=== PATIENT | male | born 1995 | race Caucasian/White ===

== ENCOUNTER 2017-12-06 14:51 | Outpatient (CLI) | payer BC ==
[~2017-12-06] VITALS: Ht 165.1 cm; Wt 72.6 kg
[2017-12-06] MEDS ORDERED: RISP1TAB3 PO (15:45)
== END 2017-12-06 15:51 | disposition home or self-care (01) ==
LOC: EDBD → PREOP 14:51
PROVIDERS: ATTEND Specialist
DX: Z01.818 Encounter for other preprocedural examination (principal)

== ENCOUNTER 2017-12-11 08:28 | Day surgery (SDC) | payer BC ==
[~2017-12-11] VITALS: Ht 165.1 cm; Wt 72.6 kg
[~2017-12-11 08:28] MED LIST: RISP1TAB3 PO
[2017-12-11] MEDS ORDERED: LACTATED RINGERS 1,000 ML IV PRN ×3 (08:52→09:00)
[2017-12-11 08:55] VITALS: BP 100/57
[2017-12-11] MEDS ORDERED: ceFAZolin 2 GM IV Premixed 50 ML IV ONE (09:00)
[2017-12-11] MEDS ORDERED: CATHETER FLUSH 10 ML SYR IV PRN (09:15)
[2017-12-11] MEDS ORDERED: NS IV 500 ML 500 ML IV PRN (09:17)
[2017-12-11] MEDS ORDERED: IBUPROFEN SUSP 100MG/5ML (MOTRIN) UDC ONE (09:18)
[2017-12-11] MEDS ORDERED: LIDOCAINE/EPI 2% 1:100,00 (XYLOCAINE) 20 ML VIAL ONE (09:25)
[2017-12-11] MEDS ORDERED: ROPIVACAINE 5MG/ML 30ML VIAL ONE (09:26)
[2017-12-11] MEDS ORDERED: MIDAZOLAM 2 MG/2 ML (VERSED) VIAL ONE (09:29)
[2017-12-11] MEDS ORDERED: fentaNYL INJECTION 100 MCG/2 ML AMP ONE (09:29)
[2017-12-11] MEDS ORDERED: ONDANSETRON 4 MG/2 ML (SDV) Z0FRAN ONE (09:29)
[2017-12-11] MEDS ORDERED: proPOfol 200 MG/20 ML (DIPRIVAN) VIAL IV ONE (09:29)
[2017-12-11] MEDS ORDERED: DEXAMETHASONE 10 MG/ML (DECADRON) 1 ML VIAL ONE (09:29)
[2017-12-11] MEDS ORDERED: LIDOCAINE PF 2% 2 ML (XYLOCAINE) VIAL ONE (09:29)
[2017-12-11] MEDS ORDERED: ROCURONIUM 10 MG/ML 5 ML SYRINGE IV ONE (09:29)
[2017-12-11] MEDS ORDERED: SEVOFLURANE (ULTANE) 15 ML INHAL SOLN ONE (09:29)
[2017-12-11] MEDS ORDERED: APAP 325 MG/10.15 ML LIQ (TYLENOL) UDC PO ONE (09:30)
[2017-12-11] MEDS ORDERED: MIDAZOLAM SYRUP (VERSED) 10MG/5ML UDC PO ONE (09:30)
--- NOTE | 2017-12-11 09:35 | Progress Note-Pre Operative ---
Pre-Operative Progress Note H&P Reviewed The H&P was reviewed, patient examined and no changes noted. Date Seen by Provider: Dec 11, 2017 Time Seen by Provider: :30 Date H&P Reviewed: Dec 11, 2017 Time H&P Reviewed: :30 Pre-Operative Diagnosis: downs syndrome, nonfuntionaland, carious wisdom teeth. SHELBY DUNCAN DDS Dec 11, 2017 9:35 am
[2017-12-11] MEDS ORDERED: LIDOCAINE JELLY 2% (XYLOCAINE) 5 ML TUBE ONE (09:36)
[2017-12-11] MEDS ORDERED: PHENYLEPHRINE 0.25% NASAL SPR (NEO-SYNEPHRINE) 15 ML NS ONE ×2 (09:57→10:30)
[2017-12-11] MEDS ORDERED: PHENYLEPHRINE 100 MCG/ML 10 ML (ANESTHESIA) SYR ONE (10:17)
--- OUTSIDE RECORDS SUMMARY | 2017-12-11 10:24 | XMS REPORT | Clinical Summary ---
Author Author Admin, EDDIE Organization [facility] Address Unknown Phone Unavailable Allergies, Adverse Reactions, Alerts Allergy Name Reaction Description Start Date Severity Status Provider No Known Allergies Mechellemaria de jesus Mcclellan VALENTINO Conditions or Problems Problem Name Problem Code Onset Date Status Entry Date Provider Comment Standard Description Annotate DOWN SYNDROME 758.0 Active Iesha Cardoza MD Down's syndrome OTITIS MEDIA-ACUTE 382.9 Inactive Iesha Cardoza MD Unspecified otitis media FAMILY HISTORY OF HYPERTENSION V17.4 Active Iesha Cardoza MD Family history of other cardiovascular diseases FAMILY HISTORY OF HYPERLIPIDEMIA V17.4 Active Iesha Cardoza MD Family history of other cardiovascular diseases WELL CHILD EXAMINATION V20.2 Active Katarzyna Wilson Routine or child health check Sinusitis-Acute 461.9 Inactive Iesha Cardoza MD Acute sinusitis, unspecified Eczema 692.9 Active Iesha Cardoza MD Contact dermatitis and other eczema, unspecified cause Dandruff 690.18 Resolved Iesha Cardoza MD Other seborrheic dermatitis Sinusitis-Acute 461.9 Inactive Iesha Cardoza MD Acute sinusitis, unspecified Fatigue 780.79 Resolved Iesha Cardoza MD Other malaise and fatigue Fatigue 780.79 Resolved Iesha Cardoza MD Other malaise and fatigue Constipation 564.00 Resolved Iesha Cardoza MD Constipation, unspecified Behavior problems 312.9 Active Iesha Cardoza MD Unspecified disturbance of conduct OTITIS MEDIA-ACUTE ICD-382.9 Inactive Iesha Cardoza MD Sinusitis-Acute ICD-461.9 Inactive Iesha Carodza MD Dandruff ICD-690.18 Inactive Iesha Cardoza MD Sinusitis-Acute ICD-461.9 Inactive Iesha Cardoza MD Fatigue ICD-780.79 Inactive Iesha Cardoza MD Fatigue ICD-780.79 Inactive Iesha Cardoza MD Constipation ICD-564.00 Inactive Iesha Cardoza MD Medication List Medication Instructions Start Date Stop Date Generic Name NDC Status Provider Patient Instruction LORAZEPAM 0.5 MG TABS 1/2 - 1 pill by mouth twice nightly if needed for sleep LORAZEPAM 92386910902 No Longer Active Iesha Cardoza MD Active ZOLOFT 25 MG ORAL TABS 1 daily SERTRALINE HCL 37835057277 Active Iesha Cardoza MD Active FLUTICASONE PROPIONATE 50 MCG/ACT SUSP 1 puff in each nostril daily FLUTICASONE PROPIONATE 50442579972 No Longer Active Hannah Bowman MD PhD Active TRANSDERM-SCOP 1.5 MG PT72 use every 3rd day SCOPOLAMINE BASE 49008141545 No Longer Active Hannah Bowman MD PhD Active AUGMENTIN 875-125 MG TABS 1 bid AMOXICILLIN-POT CLAVULANATE 97702366365 No Longer Active Iesha Cardoza MD Active AMOXICILLIN 875 MG TABS 1 bid AMOXICILLIN 67308234737 No Longer Active Iesha Cardzoa MD Active OFLOXACIN 0.3 % OPHTH SOLN 4-5 of the eye drops in the ear bid OFLOXACIN 76610032558 No Longer Active Iesha Cardoza MD Active AMOXICILLIN 875 MG TABS 1 bid AMOXICILLIN 875 MG TABS 725001 AMOXICILLIN Inactive TRANSDERM-SCOP 1.5 MG PT72 use every 3rd day TRANSDERM-SCOP 1.5 MG PT72 SCOPOLAMINE BASE Inactive FLUTICASONE PROPIONATE 50 MCG/ACT SUSP 1 puff in each nostril daily FLUTICASONE PROPIONATE 50 MCG/ACT SUSP 1265202 FLUTICASONE PROPIONATE Inactive LORAZEPAM 0.5 MG TABS 1/2 - 1 pill by mouth twice nightly if needed for sleep LORAZEPAM 0.5 MG TABS 167097 LORAZEPAM Inactive OFLOXACIN 0.3 % OPHTH SOLN 4-5 of the eye drops in the ear bid OFLOXACIN 0.3 % OPHTH SOLN 852786 OFLOXACIN Inactive AUGMENTIN 875-125 MG TABS 1 bid AUGMENTIN 875-125 MG TABS 811314 AMOXICILLIN-POT CLAVULANATE Inactive Advance Directives Directive Description Start Date LETTER OF AUTHORITY Immunizations Vaccine Administration Date Value Standard Description Hepatitis A vaccine, ped/adol, 2 dose (Havrix 2 dose ped/adol, Vaqta ped/adol) , #2 Havrix (2 dose - Ped/Adol) [CVX83] hepatitis A vaccine, pediatric/adolescent dosage, 2 dose schedule Adacel (Tetanus, reduced Diphtheria, and acellular Pertussis Immunization) Adacel [[id number]] tetanus toxoid, reduced diphtheria toxoid, and acellular pertussis vaccine, adsorbed chicken pox immunization #1 Historical varicella virus vaccine MPSV4 (meningococcal polysaccharide vaccination) Historical meningococcal polysaccharide vaccine (MPSV4) hepatitis A immunization #1 Historical hepatitis A vaccine, unspecified formulation DPT immunization #5 Historical oral polio vaccine (OPV) #4 Historical poliovirus vaccine, unspecified formulation Hemophilus influenza B immunization #4 Historical Haemophilus influenzae type b vaccine, conjugate unspecified formulation DPT immunization #4 Historical MMR (measles, mumps, rubella) virus immunization #1 Historical hepatitis B vaccine #3 Historical hepatitis B vaccine, unspecified formulation DPT immunization #3 Historical Hemophilus influenza B immunization #3 Historical Haemophilus influenzae type b vaccine, conjugate unspecified formulation oral polio vaccine (OPV) #3 Historical poliovirus vaccine, unspecified formulation DPT immunization #2 Historical Hemophilus influenza B immunization #2 Historical Haemophilus influenzae type b vaccine, conjugate unspecified formulation oral polio vaccine (OPV) #2 Historical poliovirus vaccine, unspecified formulation hepatitis B vaccine #2 given Historical hepatitis B vaccine, unspecified formulation DPT immunization #1 Historical Hemophilus influenza B immunization #1 Historical Haemophilus influenzae type b vaccine, conjugate unspecified formulation oral polio vaccine (OPV) #1 Historical poliovirus vaccine, unspecified formulation hepatitis B vaccine #1 given Historical hepatitis B vaccine, unspecified formulation Vital Signs Date Name Value Unit Range Description blood pressure, diastolic - 8462-4 60 mm[Hg] BP nation blood pressure, systolic - 8480-6 118 mm[Hg] BP sys height E&M - 8302-2 63 [in_us] Bdy height temperature E&M 97.8 [degF] Body temperature weight E&M - 3141-9 149 [lb_av] Weight Measured Encounters Code Encounter Date Provider Facility CPT-47332 Level 3 Est. Patient 13:45:53 CDT Iesha Cardoza MD [facility] CPT-20253 Level 3 Est. Patient 14:46:41 BUCK SWAMPER Hannah Bowman MD PhD [facility] CPT-37116 Level 3 Est. Patient 10:50:17 BUCK SWAMPER Iesha Cardoza MD [facility] CPT-57784 Level 3 Est. Patient 15:46:29 BUCK SWAMPER Iesha Cardoza MD [facility] CPT-33032 Level 3 Est. Patient 16:05:57 CDT Iesha Cardoza MD [facility] Procedures Code Procedure Name Date Entry Date Standard Description CPT-000 Give Immunizations Due 15:58:05 CDT CPT-42277 Administration 2+ single or combination vaccines inc oral 16:09:35 CDT CPT-78468 Administration single or combination vaccine inc oral 16 :09:35 CDT CPT-35134 Hepatitis A ped/adol 2 dose schedule 16:09:35 CDT 09/04 CPT-34412 Meningococcal Conjugate Vacine (Menactra) 16:09:35 CDT CPT-PV Prev. Care Visit 15:58:05 CDT CPT-31198 Venipuncture Draw Fee 12:00:59 CDT CPT-PV Prev. Care Visit 12:00:08 CDT
--- OUTSIDE RECORDS SUMMARY | 2017-12-11 10:24 | XMS REPORT | Clinical Summary ---
Author Author Admin, EDDIE Organization [facility] Address Unknown Phone Unavailable Allergies, Adverse [...] MD Sinusitis-Acute ICD-461.9 Inactive Iesha Cardoza MD Dandruff ICD-690.18 Inactive Iesha Cardoza MD Sinusitis-Acute ICD-461.9 Inactive Iesha Cardoza MD Fatigue ICD-780.79 Inactive Iesha Cardoza MD Fatigue ICD-780.79 Inactive Iesha Cardoza MD Constipation ICD-564.00 Inactive Iesha Cardoza MD Medication List Medication Instructions Start Date Stop Date Generic Name NDC Status Provider Patient Instruction LORAZEPAM 0.5 MG TABS 1/2 - 1 pill by mouth twice nightly if needed for sleep LORAZEPAM 44828074517 No Longer Active Iesha Cardoza MD Active ZOLOFT 25 MG ORAL TABS 1 daily SERTRALINE HCL 09860324567 Active Iesha Cardoza MD Active FLUTICASONE PROPIONATE 50 MCG/ACT SUSP 1 puff in each nostril daily FLUTICASONE PROPIONATE 60275624867 No Longer Active Hannah Bowman MD PhD Active TRANSDERM-SCOP 1.5 MG PT72 use every 3rd day SCOPOLAMINE BASE 12500952052 No Longer Active Hannah Bowman MD PhD Active AUGMENTIN 875-125 MG TABS 1 bid AMOXICILLIN-POT CLAVULANATE 29604489448 No Longer Active Iesha Cardoza MD Active AMOXICILLIN 875 MG TABS 1 bid AMOXICILLIN 77496373108 No Longer Active Iesha Cardoza MD Active OFLOXACIN 0.3 % OPHTH SOLN 4-5 of the eye drops in the ear bid OFLOXACIN 30212326121 No Longer Active Iesha Cardoza MD Active AMOXICILLIN 875 MG TABS 1 bid AMOXICILLIN 875 MG TABS 695394 AMOXICILLIN Inactive TRANSDERM-SCOP 1.5 MG PT72 use every 3rd day TRANSDERM-SCOP 1.5 MG PT72 SCOPOLAMINE BASE Inactive FLUTICASONE PROPIONATE 50 MCG/ACT SUSP 1 puff in each nostril daily FLUTICASONE PROPIONATE 50 MCG/ACT SUSP 4902526 FLUTICASONE PROPIONATE Inactive LORAZEPAM 0.5 MG TABS 1/2 - 1 pill by mouth twice nightly if needed for sleep LORAZEPAM 0.5 MG TABS 766623 LORAZEPAM Inactive OFLOXACIN 0.3 % OPHTH SOLN 4-5 of the eye drops in the ear bid OFLOXACIN 0.3 % OPHTH SOLN 935834 OFLOXACIN Inactive AUGMENTIN 875-125 MG TABS 1 bid AUGMENTIN 875-125 MG TABS 694749 AMOXICILLIN-POT CLAVULANATE Inactive Advance Directives Directive Description Start Date LETTER OF AUTHORITY Immunizations Vaccine Administration Date Value Standard Description Hepatitis A vaccine, ped/adol, 2 dose (Havrix 2 dose ped/adol, Vaqta ped/adol) , #2 Havrix (2 dose - Ped/Adol) [CVX83] hepatitis A vaccine, pediatric/adolescent dosage, 2 dose schedule Adacel (Tetanus, reduced Diphtheria, and acellular Pertussis Immunization) Adacel [[id number]] tetanus toxoid, reduced diphtheria toxoid, and acellular [...] Measured Encounters Code Encounter Date Provider Facility CPT-02348 Level 3 Est. Patient 13:45:53 CDT Iesha Cardoza MD [facility] CPT-02552 Level 3 Est. Patient 14:46:41 PATIENT SERVICE ASSOCIATE Hannah Bowman MD PhD [facility] CPT-43547 Level 3 Est. Patient 10:50:17 PATIENT SERVICE ASSOCIATE Iesha Cardoza MD [facility] CPT-79074 Level 3 Est. Patient 15:46:29 PATIENT SERVICE ASSOCIATE Iesha Cardoza MD [facility] CPT-66628 Level 3 Est. Patient 16:05:57 CDT Iesha Cardoza MD [facility] Procedures Code Procedure Name Date Entry Date Standard Description CPT-000 Give Immunizations Due 15:58:05 CDT CPT-22401 Administration 2+ single or combination vaccines inc oral 16:09:35 CDT CPT-41634 Administration single or combination vaccine inc oral 16 :09:35 CDT CPT-84562 Hepatitis A ped/adol 2 dose schedule 16:09:35 CDT 09/04 CPT-45725 Meningococcal Conjugate Vacine (Menactra) 16:09:35 CDT CPT-PV Prev. Care Visit 15:58:05 CDT CPT-13514 Venipuncture Draw Fee 12:00:59 CDT CPT-PV Prev. Care Visit 12:00:08 CDT
--- OUTSIDE RECORDS SUMMARY | 2017-12-11 10:24 | XMS REPORT | Clinical Summary ---
Author Author Admin, EDDIE Organization [facility] Address Unknown Phone Unavailable Allergies, Adverse Reactions, Alerts Allergy Name Reaction Description Start Date Severity Status Provider No Known Allergies Dianna Mayers RMSaray Conditions or Problems Problem Name Problem Code [...] eczema, unspecified cause Dandruff 690.18 Resolved Iesha Cadroza MD Other seborrheic dermatitis Sinusitis-Acute 461.9 Inactive Iesha Cardoza MD Acute sinusitis, unspecified Fatigue 780.79 Resolved Iesha Cardoza MD Other malaise and fatigue Fatigue 780.79 Resolved Iesha Cardoza MD Other malaise and fatigue Constipation 564.00 Resolved Iesha Cardoza MD Constipation, unspecified Behavior problems 312.9 Active Iesha Cardoza MD Unspecified disturbance of conduct Pneumonia 486 Active Iesha Cardoza MD Pneumonia, organism unspecified OTITIS MEDIA-ACUTE ICD-382.9 Inactive Iesha Cardoza MD Sinusitis-Acute ICD-461.9 Inactive Iesha Cardoza MD Dandruff ICD-690.18 Inactive Iesha Cardoza MD Sinusitis-Acute ICD-461.9 Inactive Iesha Cardoza MD Fatigue ICD-780.79 Inactive Iesha Cardoza MD Fatigue ICD-780.79 Inactive Iesha Cardoza MD Constipation ICD-564.00 Inactive Iesha Cardoza MD Medication List Medication Instructions Start Date Stop Date Generic Name NDC Status Provider Patient Instruction FLUTICASONE PROPIONATE 50 MCG/ACT NASAL SUSPENSION 1 puff in each nostril daily FLUTICASONE PROPIONATE 00865348586 No Longer Active Iesha Cardoza MD Active RISPERIDONE 0.25 MG ORAL TABLET 1 daily RISPERIDONE 98855808499 Active Iesha Cardoza MD Active ZOLOFT 50 MG ORAL TABLET 1 daiy SERTRALINE HCL 80678559013 Active Iesha Cardoza MD Active LORAZEPAM 0.5 MG ORAL TABLET 1/2 - 1 pill by mouth twice nightly if needed for sleep LORAZEPAM 20296546384 No Longer Active Iesha Cardoza MD Active FLUTICASONE PROPIONATE 50 MCG/ACT NASAL SUSPENSION 1 puff in each nostril daily FLUTICASONE PROPIONATE 23840797689 No Longer Active Hannah Bowman MD PhD Active TRANSDERM-SCOP (1.5 MG) 1 MG/3DAYS TRANSDERMAL PATCH 72 HOUR use every 3rd day SCOPOLAMINE BASE 64625642996 No Longer Active Hannah Bowman MD PhD Active AUGMENTIN 875-125 MG ORAL TABLET 1 bid AMOXICILLIN- POT CLAVULANATE 87611446440 No Longer Active Iesha Cardoza MD Active AMOXICILLIN 875 MG ORAL TABLET 1 bid AMOXICILLIN 75672724327 No Longer Active Iesha Cardoza MD Active OFLOXACIN 0.3 % OPHTHALMIC SOLUTION 4-5 of the eye drops in the ear bid 01/03 OFLOXACIN 27014825336 No Longer Active Iesha Cardoza MD Active AMOXICILLIN 875 MG ORAL TABLET 1 bid AMOXICILLIN 875 MG ORAL TABLET 728760 AMOXICILLIN Inactive TRANSDERM-SCOP (1.5 MG) 1 MG/3DAYS TRANSDERMAL PATCH 72 HOUR use every 3rd day TRANSDERM-SCOP (1.5 MG) 1 MG/3DAYS TRANSDERMAL PATCH 72 HOUR SCOPOLAMINE BASE Inactive FLUTICASONE PROPIONATE 50 MCG/ACT NASAL SUSPENSION 1 puff in each nostril daily FLUTICASONE PROPIONATE 50 MCG/ACT NASAL SUSPENSION 4182232 FLUTICASONE PROPIONATE Inactive LORAZEPAM 0.5 MG ORAL TABLET 1/2 - 1 pill by mouth twice nightly if needed for sleep LORAZEPAM 0.5 MG ORAL TABLET 148944 LORAZEPAM Inactive OFLOXACIN 0.3 % OPHTHALMIC SOLUTION 4-5 of the eye drops in the ear bid 01/03 OFLOXACIN 0.3 % OPHTHALMIC SOLUTION 522403 OFLOXACIN Inactive AUGMENTIN 875-125 MG ORAL TABLET 1 bid AUGMENTIN 875- 125 MG ORAL TABLET 713178 AMOXICILLIN-POT CLAVULANATE Inactive FLUTICASONE PROPIONATE 50 MCG/ACT NASAL SUSPENSION 1 puff in each nostril daily FLUTICASONE PROPIONATE 50 MCG/ACT NASAL SUSPENSION 7217034 FLUTICASONE PROPIONATE Inactive Advance Directives Directive Description Start Date LETTER OF AUTHORITY Immunizations Vaccine Administration Date Value Standard Description Hepatitis A vaccine, ped/adol, 2 dose (Havrix 2 dose ped/adol, Vaqta ped/adol) , #2 Havrix (2 dose - Ped/Adol) [CVX83] hepatitis A vaccine, pediatric/adolescent dosage, 2 dose schedule Adacel (Tetanus, reduced Diphtheria, and acellular Pertussis Immunization) Adacel [[id number]] tetanus toxoid, reduced diphtheria toxoid, and acellular [...] (measles, mumps, rubella) virus immunization #1 Historical Hemophilus influenza B immunization #3 Historical Haemophilus influenzae type b vaccine, conjugate unspecified formulation oral polio vaccine (OPV) #3 Historical poliovirus vaccine, unspecified formulation DPT immunization #3 Historical hepatitis B vaccine #3 Historical hepatitis B vaccine, unspecified formulation Hemophilus influenza B immunization #2 Historical Haemophilus influenzae type b vaccine, conjugate unspecified formulation oral polio vaccine (OPV) #2 Historical poliovirus vaccine, unspecified formulation DPT immunization #2 Historical Hemophilus influenza B immunization #1 Historical Haemophilus influenzae type b vaccine, conjugate unspecified formulation oral polio vaccine (OPV) #1 Historical poliovirus vaccine, unspecified formulation DPT immunization #1 Historical hepatitis B vaccine #2 given Historical hepatitis B vaccine, unspecified formulation hepatitis B vaccine #1 given Historical hepatitis B vaccine, unspecified formulation Vital Signs Date Name Value Unit Range Description blood pressure, diastolic 64 mm[Hg] BP nation blood pressure, systolic 118 mm[Hg] BP sys height E&M 65.25 [in_us] Bdy height temperature E&M 97.0 [degF] Body temperature weight E&M 139 [lb_av] Weight Measured Encounters Code Encounter Date Provider Facility CPT-41004 Level 2 Est. 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 Patient 13:45:53 CDT Iesha Cardoza MD [facility] CPT-12648 Level 3 Est. Patient 14:46:41 MEDICAL HEALTH RESEARCHER Hannah Bowman MD [facility] CPT-53238 Level 3 Est. Patient 10:50:17 MEDICAL HEALTH RESEARCHER Iesha Cardoza MD [facility] CPT-68419 Level 3 Est. Patient 15:46:29 MEDICAL HEALTH RESEARCHER Iesha Cardoza MD [facility] CPT-38766 Level 3 Est. Patient 16:05:57 CDT Iesha Cardoza MD [facility] Procedures Code Procedure Name Date Entry Date Standard Description CPT-44072 Venipuncture Draw Fee 10:55:08 CDT CPT-09012 TSH - LAB USE ONLY 10:55:08 CDT CPT-06579 Free T4 - LAB USE ONLY 10:55:07 CDT CPT-70777 CMP - LAB USE ONLY 10:55:07 CDT CPT-51521 CBC with Diff - LAB USE ONLY 10:55:07 CDT CPT-000 Give Immunizations Due 15:58:05 CDT CPT-55133 Administration 2+ single or combination vaccines inc oral 16:09:35 CDT CPT-35359 Administration single or combination vaccine inc oral 16 :09:35 CDT CPT-69761 Hepatitis A ped/adol 2 dose schedule 16:09:35 CDT 09/04 CPT-79849 Meningococcal Conjugate Vacine (Menactra) 16:09:35 CDT CPT-PV Prev. Care Visit 15:58:05 CDT CPT-88587 Venipuncture Draw Fee 12:00:59 CDT CPT-PV Prev. Care Visit 12:00:08 CDT
--- OUTSIDE RECORDS SUMMARY | 2017-12-11 10:25 | XMS REPORT | Clinical Summary ---
Author Author Admin, EDDIE Organization [facility] Address Unknown Phone Unavailable Allergies, Adverse Reactions, Alerts Allergy Name Reaction Description Start Date Severity Status Provider No Known Allergies Dianna Hill RMSaray Conditions or Problems Problem Name Problem Code Onset Date Status Entry Date Provider Comment Standard Description Annotate DOWN SYNDROME 758.0 Active Iehsa Cardoza MD Down's syndrome OTITIS MEDIA-ACUTE 382.9 [...] Inactive Iesha Cardoza MD Fatigue ICD-780.79 Inactive Iseha Cardoza MD Fatigue ICD-780.79 Inactive Iesah Cardoza MD Constipation ICD-564.00 Inactive Iesha Cardoza MD Medication List Medication Instructions Start Date Stop Date Generic Name NDC Status Provider Patient Instruction FLUTICASONE PROPIONATE 50 MCG/ACT NASAL SUSPENSION 1 puff in each nostril daily FLUTICASONE PROPIONATE 50145135728 No Longer Active Iesha Cardoza MD Active RISPERIDONE 0.25 MG ORAL TABLET 1 daily RISPERIDONE 65818741159 Active Iesha Cardoza MD Active ZOLOFT 50 MG ORAL TABLET 1 daiy SERTRALINE HCL 50077963670 Active Iesha Cardoza MD Active LORAZEPAM 0.5 MG ORAL TABLET 1/2 - 1 pill by mouth twice nightly if needed for sleep LORAZEPAM 65718987167 No Longer Active Iesha Cardoza MD Active FLUTICASONE PROPIONATE 50 MCG/ACT NASAL SUSPENSION 1 puff in each nostril daily FLUTICASONE PROPIONATE 86263583301 No Longer Active Hannah Bowman MD PhD Active TRANSDERM-SCOP (1.5 MG) 1 MG/3DAYS TRANSDERMAL PATCH 72 HOUR use every 3rd day SCOPOLAMINE BASE 88720455214 No Longer Active Hannah Bowman MD PhD Active AUGMENTIN 875-125 MG ORAL TABLET 1 bid AMOXICILLIN- POT CLAVULANATE 43253958860 No Longer Active Iesha Cardoza MD Active AMOXICILLIN 875 MG ORAL TABLET 1 bid AMOXICILLIN 48029317047 No Longer Active Iesha Cardoza MD Active OFLOXACIN 0.3 % OPHTHALMIC SOLUTION 4-5 of the eye drops in the ear bid 01/03 OFLOXACIN 07555284753 No Longer Active Iesha Cardoza MD Active AMOXICILLIN 875 MG ORAL TABLET 1 bid AMOXICILLIN 875 MG ORAL TABLET 852994 AMOXICILLIN Inactive TRANSDERM-SCOP (1.5 MG) 1 MG/3DAYS TRANSDERMAL PATCH 72 HOUR use every 3rd day TRANSDERM-SCOP (1.5 MG) 1 MG/3DAYS TRANSDERMAL PATCH 72 HOUR SCOPOLAMINE BASE Inactive FLUTICASONE PROPIONATE 50 MCG/ACT NASAL SUSPENSION 1 puff in each nostril daily FLUTICASONE PROPIONATE 50 MCG/ACT NASAL SUSPENSION 8188806 FLUTICASONE PROPIONATE Inactive LORAZEPAM 0.5 MG ORAL TABLET 1/2 - 1 pill by mouth twice nightly if needed for sleep LORAZEPAM 0.5 MG ORAL TABLET 648420 LORAZEPAM Inactive OFLOXACIN 0.3 % OPHTHALMIC SOLUTION 4-5 of the eye drops in the ear bid 01/03 OFLOXACIN 0.3 % OPHTHALMIC SOLUTION 309033 OFLOXACIN Inactive AUGMENTIN 875-125 MG ORAL TABLET 1 bid AUGMENTIN 875- 125 MG ORAL TABLET 536180 AMOXICILLIN-POT CLAVULANATE Inactive FLUTICASONE PROPIONATE 50 MCG/ACT NASAL SUSPENSION 1 puff in each nostril daily FLUTICASONE PROPIONATE 50 MCG/ACT NASAL SUSPENSION 2150381 FLUTICASONE PROPIONATE Inactive Advance Directives Directive Description Start Date LETTER OF AUTHORITY Immunizations Vaccine Administration Date Value Standard Description Hepatitis A vaccine, ped/adol, 2 dose (Havrix 2 dose ped/adol, Vaqta ped/adol) , #2 Havrix (2 dose - Ped/Adol) [CVX83] hepatitis A vaccine, pediatric/adolescent dosage, 2 dose schedule Adacel (Tetanus, reduced Diphtheria, and acellular Pertussis Immunization) Adacel [ORV910] tetanus toxoid, reduced diphtheria toxoid, and acellular [...] Measured Encounters Code Encounter Date Provider Facility CPT-72895 Level 2 Est. Patient 23:52:20 PEDIATRIC CNS Iesha Cardoza MD [facility] CPT-73884 Level 3 Est. Patient 13:45:53 CDT Iesha Cardoza MD [facility] CPT-94004 Level 3 Est. Patient 14:46:41 PEDIATRIC CNS Hannah Bowman MD [facility] CPT-94747 Level 3 Est. Patient 10:50:17 PEDIATRIC CNS Iesha Cardoza MD [facility] CPT-93955 Level 3 Est. Patient 15:46:29 PEDIATRIC CNS Iesha Cardoza MD [facility] CPT-76444 Level 3 Est. Patient 16:05:57 CDT Iesha Cardoza MD [facility] Procedures Code Procedure Name Date Entry Date Standard Description CPT-30064 Venipuncture Draw Fee 10:55:08 CDT CPT-53987 TSH - LAB USE ONLY 10:55:08 CDT CPT-75487 Free T4 - LAB USE ONLY 10:55:07 CDT CPT-08809 CMP - LAB USE ONLY 10:55:07 CDT CPT-01762 CBC with Diff - LAB USE ONLY 10:55:07 CDT CPT-000 Give Immunizations Due 15:58:05 CDT CPT-08041 Administration 2+ single or combination vaccines inc oral 16:09:35 CDT CPT-30779 Administration single or combination vaccine inc oral 16 :09:35 CDT CPT-91636 Hepatitis A ped/adol 2 dose schedule 16:09:35 CDT 09/04 CPT-46238 Meningococcal Conjugate Vacine (Menactra) 16:09:35 CDT CPT-PV Prev. Care Visit 15:58:05 CDT CPT-72927 Venipuncture Draw Fee 12:00:59 CDT CPT-PV Prev. Care Visit 12:00:08 CDT
--- OUTSIDE RECORDS SUMMARY | 2017-12-11 10:25 | XMS REPORT | Clinical Summary ---
Author Author Admin, EDDIE Organization [facility] Address Unknown Phone Unavailable Allergies, Adverse Reactions, [...] MD Acute sinusitis, unspecified Eczema 692.9 Active Iseha Cardoza MD Contact dermatitis and other eczema, [...] puff in each nostril daily FLUTICASONE PROPIONATE 54048070601 No Longer Active Iesha Cardoza MD Active RISPERIDONE 0.25 MG ORAL TABLET 1 daily RISPERIDONE 78394280041 Active Iesha Cardoza MD Active ZOLOFT 50 MG ORAL TABLET 1 daiy SERTRALINE HCL 47730820533 Active Iesha Cardoza MD Active LORAZEPAM 0.5 MG ORAL TABLET 1/2 - 1 pill by mouth twice nightly if needed for sleep LORAZEPAM 24793481880 No Longer Active Iesha Cardoza MD Active FLUTICASONE PROPIONATE 50 MCG/ACT NASAL SUSPENSION 1 puff in each nostril daily FLUTICASONE PROPIONATE 52322950180 No Longer Active Hannah Bowman MD PhD Active TRANSDERM-SCOP (1.5 MG) 1 MG/3DAYS TRANSDERMAL PATCH 72 HOUR use every 3rd day SCOPOLAMINE BASE 62738768725 No Longer Active Hannah Bowman MD PhD Active AUGMENTIN 875-125 MG ORAL TABLET 1 bid AMOXICILLIN- POT CLAVULANATE 95399187046 No Longer Active Iesha Cardoza MD Active AMOXICILLIN 875 MG ORAL TABLET 1 bid AMOXICILLIN 89646398645 No Longer Active Iesha Cardoza MD Active OFLOXACIN 0.3 % OPHTHALMIC SOLUTION 4-5 of the eye drops in the ear bid 01/03 OFLOXACIN 44570605676 No Longer Active Iesha Cardoza MD Active LORAZEPAM 0.5 MG ORAL TABLET 1/2 - 1 pill by mouth twice nightly if needed for sleep LORAZEPAM 0.5 MG ORAL TABLET 498639 LORAZEPAM Inactive AUGMENTIN 875-125 MG ORAL TABLET 1 bid AUGMENTIN 875- 125 MG ORAL TABLET 874170 AMOXICILLIN-POT CLAVULANATE Inactive OFLOXACIN 0.3 % OPHTHALMIC SOLUTION 4-5 of the eye drops in the ear bid 01/03 OFLOXACIN 0.3 % OPHTHALMIC SOLUTION 328456 OFLOXACIN Inactive AMOXICILLIN 875 MG ORAL TABLET 1 bid AMOXICILLIN 875 MG ORAL TABLET 458710 AMOXICILLIN Inactive FLUTICASONE PROPIONATE 50 MCG/ACT NASAL SUSPENSION 1 puff in each nostril daily FLUTICASONE PROPIONATE 50 MCG/ACT NASAL SUSPENSION 5874986 FLUTICASONE PROPIONATE Inactive FLUTICASONE PROPIONATE 50 MCG/ACT NASAL SUSPENSION 1 puff in each nostril daily FLUTICASONE PROPIONATE 50 MCG/ACT NASAL SUSPENSION 1836914 FLUTICASONE PROPIONATE Inactive TRANSDERM-SCOP (1.5 MG) 1 MG/3DAYS TRANSDERMAL PATCH 72 HOUR use every 3rd day TRANSDERM-SCOP (1.5 MG) 1 MG/3DAYS TRANSDERMAL PATCH 72 HOUR SCOPOLAMINE BASE Inactive Advance Directives Directive Description Start Date LETTER OF AUTHORITY Immunizations Vaccine Administration Date Value Standard Description Hepatitis A vaccine, ped/adol, 2 dose (Havrix 2 dose ped/adol, Vaqta ped/adol) , #2 Havrix (2 dose - Ped/Adol) [CVX83] hepatitis A vaccine, pediatric/adolescent dosage, 2 dose schedule Adacel (Tetanus, reduced Diphtheria, and acellular Pertussis Immunization) Adacel [[id number]] tetanus toxoid, reduced diphtheria toxoid, and acellular [...] Measured Encounters Code Encounter Date Provider Facility CPT-05565 Level 2 Est. 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 Patient 13:45:53 CDT Iesha Cardoza MD [facility] CPT-92712 Level 3 Est. Patient 14:46:41 DOCUMENT ADVISOR Hannah Bowman MD [facility] CPT-24182 Level 3 Est. Patient 10:50:17 DOCUMENT ADVISOR Iesha Cardoza MD [facility] CPT-69388 Level 3 Est. Patient 15:46:29 DOCUMENT ADVISOR Iesha Cardoza MD [facility] CPT-74548 Level 3 Est. Patient 16:05:57 CDT Iesha Cardoza MD [facility] Procedures Code Procedure Name Date Entry Date Standard Description CPT-64953 Venipuncture Draw Fee 10:55:08 CDT CPT-96282 TSH - LAB USE ONLY 10:55:08 CDT CPT-75913 Free T4 - LAB USE ONLY 10:55:07 CDT CPT-97830 CMP - LAB USE ONLY 10:55:07 CDT CPT-80155 CBC with Diff - LAB USE ONLY 10:55:07 CDT CPT-000 Give Immunizations Due 15:58:05 CDT CPT-85711 Administration 2+ single or combination vaccines inc oral 16:09:35 CDT CPT-39641 Administration single or combination vaccine inc oral 16 :09:35 CDT CPT-79918 Hepatitis A ped/adol 2 dose schedule 16:09:35 CDT 09/04 CPT-45924 Meningococcal Conjugate Vacine (Menactra) 16:09:35 CDT CPT-PV Prev. Care Visit 15:58:05 CDT CPT-89218 Venipuncture Draw Fee 12:00:59 CDT CPT-PV Prev. Care Visit 12:00:08 CDT
--- OUTSIDE RECORDS SUMMARY | 2017-12-11 10:25 | XMS REPORT | Clinical Summary ---
Author Author Admin, EDDIE Organization [facility] Address Unknown Phone Unavailable Allergies, [...] Generic Name NDC Status Provider Patient Instruction RISPERIDONE 0.25 MG ORAL TABS 1 daily RISPERIDONE 69900201358 Active Iesha Cardoza MD Active ZOLOFT 50 MG ORAL TABS 1 daiy SERTRALINE HCL 32664185167 Active Iesha Cardoza MD Active LORAZEPAM 0.5 MG TABS 1/2 - 1 pill by mouth twice nightly if needed for sleep LORAZEPAM 70683315978 No Longer Active Iesha Cardoza MD Active FLUTICASONE PROPIONATE 50 MCG/ACT SUSP 1 puff in each nostril daily FLUTICASONE PROPIONATE 79127798703 No Longer Active Hannah Bowman MD PhD Active TRANSDERM-SCOP 1.5 MG PT72 use every 3rd day SCOPOLAMINE BASE 35547157716 No Longer Active Hannah Bowman MD PhD Active AUGMENTIN 875-125 MG TABS 1 bid AMOXICILLIN-POT CLAVULANATE 64408929913 No Longer Active Iesha Cardoza MD Active AMOXICILLIN 875 MG TABS 1 bid AMOXICILLIN 19681393408 No Longer Active Iesha Cardoza MD Active OFLOXACIN 0.3 % OPHTH SOLN 4-5 of the eye drops in the ear bid OFLOXACIN 08922964079 No Longer Active Iesha Cardoza MD Active AMOXICILLIN 875 MG TABS 1 bid AMOXICILLIN 875 MG TABS 690363 AMOXICILLIN Inactive TRANSDERM-SCOP 1.5 MG PT72 use every 3rd day TRANSDERM-SCOP 1.5 MG PT72 SCOPOLAMINE BASE Inactive FLUTICASONE PROPIONATE 50 MCG/ACT SUSP 1 puff in each nostril daily FLUTICASONE PROPIONATE 50 MCG/ACT SUSP 3632924 FLUTICASONE PROPIONATE Inactive LORAZEPAM 0.5 MG TABS 1/2 - 1 pill by mouth twice nightly if needed for sleep LORAZEPAM 0.5 MG TABS 280576 LORAZEPAM Inactive OFLOXACIN 0.3 % OPHTH SOLN 4-5 of the eye drops in the ear bid OFLOXACIN 0.3 % OPHTH SOLN 675024 OFLOXACIN Inactive AUGMENTIN 875-125 MG TABS 1 bid AUGMENTIN 875-125 MG TABS 041614 AMOXICILLIN-POT CLAVULANATE Inactive Advance Directives Directive Description Start Date LETTER OF AUTHORITY Immunizations Vaccine Administration Date Value Standard Description Hepatitis A vaccine, ped/adol, 2 dose (Havrix 2 dose ped/adol, Vaqta ped/adol) , #2 Havrix (2 dose - Ped/Adol) [CVX83] hepatitis A vaccine, pediatric/adolescent dosage, 2 dose schedule Adacel (Tetanus, reduced Diphtheria, and acellular Pertussis Immunization) Adacel [[id number]] tetanus toxoid, reduced diphtheria toxoid, and acellular [...] E&M - 3141-9 149 [lb_av] Weight Measured Diagnostic Results Date Name Value Unit Range Description Lab Report: CBC W/DIFF, Thyroid Stimulating Hormone (L), Comp. Metabolic ... - Chemistry TSH 2.83 m[iU]/mL 0.36-3.74 sodium, serum 140 mmol/L 067-107 4588/10/06 carbon dioxide, venous blood 32.4 mmol/L 21.0-32.0 potassium, serum 4.1 mmol/L 3.5-5.2 chloride, serum 101 mmol/L 98-107 blood glucose 74 mg/dL 65-110 urea nitrogen, blood 11 mg/dL 7-18 creatinine, serum 0.93 mg/dL 0.55-1.30 alanine aminotransferase (SGPT), serum 45 U/L 12-78 aspartate aminotransferase (SGOT), serum 28 U/L 15-37 calcium, serum 8.7 mg/dL 8.5-10.1 bilirubin, serum, total 0.70 mg/dL 0.00-1.00 thyroxine, serum, free 1.06 ng/dL 0.76-1.46 Lab Report: CBC W/DIFF, Thyroid Stimulating Hormone (L), Comp. Metabolic ... - Hematology leukocyte count, blood 5.1 10^3/MM^3 10*3/mm3 4.6-10.2 neutrophils as percent of blood leukocytes 49.6 % 42.2-75.2 monocytes as percent of blood leukocytes 6.6 % 1.7-9.3 lymphocytes as percent of blood leukocytes 41.0 % 20.5-51.1 erythrocyte (RBC) count 4.25 10^6/MM^3 10*6/mm3 4.69-6.13 hemoglobin, blood 14.7 g/dL 13.5-17.5 hematocrit, blood 43.2 % 41.0-53.0 mean corpuscular volume, RBC 102 fL 80-97 mean corpuscular hemoglobin, RBC 34.6 pg 27.0-31.2 mean corpuscular hemoglobin concentration, RBC 34.0 G/DL % 31.8- 35.4 red blood cell distribution width 14.0 % 11.6-14.8 platelet count 279 10^3/MM^3 10*3/mm3 142-424 Encounters Code Encounter Date Provider Facility CPT-91406 Level 3 Est. Patient 13:45:53 CDT Iesha Cardoza MD [facility] CPT-63116 Level 3 Est. 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 Patient 10:50:17 TEACHING ARTIST Iesha Cardoza MD [facility] CPT-61708 Level 3 Est. Patient 15:46:29 TEACHING ARTIST Iesha Cardoza MD [facility] CPT-35519 Level 3 Est. Patient 16:05:57 CDT Iesha Cardoza MD [facility] Procedures Code Procedure Name Date Entry Date Standard Description CPT-20184 Venipuncture Draw Fee 10:55:08 CDT CPT-45591 TSH - LAB USE ONLY 10:55:08 CDT CPT-39449 Free T4 - LAB USE ONLY 10:55:07 CDT CPT-45768 CMP - LAB USE ONLY 10:55:07 CDT CPT-91156 CBC with Diff - LAB USE ONLY 10:55:07 CDT CPT-000 Give Immunizations Due 15:58:05 CDT CPT-13013 Administration 2+ single or combination vaccines inc oral 16:09:35 CDT CPT-42780 Administration single or combination vaccine inc oral 16 :09:35 CDT CPT-08543 Hepatitis A ped/adol 2 dose schedule 16:09:35 CDT 09/04 CPT-15663 Meningococcal Conjugate Vacine (Menactra) 16:09:35 CDT CPT-PV Prev. Care Visit 15:58:05 CDT CPT-74807 Venipuncture Draw Fee 12:00:59 CDT CPT-PV Prev. Care Visit 12:00:08 CDT
[2017-12-11] MEDS ORDERED: NEOSTIGMINE 1 MG/ML 5 ML SYRINGE ONE (10:26)
[2017-12-11] MEDS ORDERED: GLYCOPYRROLATE 0.2 MG/ML (ROBINUL) 2 ML VIAL ONE (10:26)
--- OUTSIDE RECORDS SUMMARY | 2017-12-11 10:26 | XMS REPORT | Clinical Summary ---
Author Author Admin, EDDIE Organization [facility] Address Unknown Phone Unavailable Allergies, Adverse [...] 0.25 MG ORAL TABS 1 daily RISPERIDONE 74363098462 Active Iesha Cardoza MD Active ZOLOFT 50 MG ORAL TABS 1 daiy SERTRALINE HCL 62198326091 Active Iesha Cardoza MD Active LORAZEPAM 0.5 MG TABS 1/2 - 1 pill by mouth twice nightly if needed for sleep LORAZEPAM 47963888474 No Longer Active Iesha Cardoza MD Active FLUTICASONE PROPIONATE 50 MCG/ACT SUSP 1 puff in each nostril daily FLUTICASONE PROPIONATE 48856842354 No Longer Active Hannah Bowman MD PhD Active TRANSDERM-SCOP 1.5 MG PT72 use every 3rd day SCOPOLAMINE BASE 51459483385 No Longer Active Hannah Bowman MD PhD Active AUGMENTIN 875-125 MG TABS 1 bid AMOXICILLIN-POT CLAVULANATE 11397919041 No Longer Active Iesha Cardoza MD Active AMOXICILLIN 875 MG TABS 1 bid AMOXICILLIN 03950187087 No Longer Active Iesha Cardoza MD Active OFLOXACIN 0.3 % OPHTH SOLN 4-5 of the eye drops in the ear bid OFLOXACIN 19079357828 No Longer Active Iesha Cardoza MD Active AMOXICILLIN 875 MG TABS 1 bid AMOXICILLIN 875 MG TABS 598499 AMOXICILLIN Inactive TRANSDERM-SCOP 1.5 MG PT72 use every 3rd day TRANSDERM-SCOP 1.5 MG PT72 SCOPOLAMINE BASE Inactive FLUTICASONE PROPIONATE 50 MCG/ACT SUSP 1 puff in each nostril daily FLUTICASONE PROPIONATE 50 MCG/ACT SUSP 3506373 FLUTICASONE PROPIONATE Inactive LORAZEPAM 0.5 MG TABS 1/2 - 1 pill by mouth twice nightly if needed for sleep LORAZEPAM 0.5 MG TABS 813898 LORAZEPAM Inactive OFLOXACIN 0.3 % OPHTH SOLN 4-5 of the eye drops in the ear bid OFLOXACIN 0.3 % OPHTH SOLN 394847 OFLOXACIN Inactive AUGMENTIN 875-125 MG TABS 1 bid AUGMENTIN 875-125 MG TABS 087011 AMOXICILLIN-POT CLAVULANATE Inactive Advance Directives Directive Description Start Date LETTER OF AUTHORITY Immunizations Vaccine Administration Date Value Standard Description Hepatitis A vaccine, ped/adol, 2 dose (Havrix 2 dose ped/adol, Vaqta ped/adol) , #2 Havrix (2 dose - Ped/Adol) [CVX83] hepatitis A vaccine, pediatric/adolescent dosage, 2 dose schedule Adacel (Tetanus, reduced Diphtheria, and acellular Pertussis Immunization) Adacel [[id number]] tetanus toxoid, reduced diphtheria toxoid, and acellular [...] 2.83 m[iU]/mL 0.36-3.74 sodium, serum 140 mmol/L 286-676 2879/10/06 carbon dioxide, venous blood 32.4 mmol/L 21.0-32.0 [...] 142-424 Encounters Code Encounter Date Provider Facility CPT-11217 Level 3 Est. Patient 13:45:53 CDT Iesha Cardoza MD [facility] CPT-68014 Level 3 Est. 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 Patient 10:50:17 UNDERCOATER Iesha Cardoza MD [facility] CPT-36551 Level 3 Est. Patient 15:46:29 UNDERCOATER Iesha Cardoza MD [facility] CPT-05872 Level 3 Est. Patient 16:05:57 CDT Iesha Cardoza MD [facility] Procedures Code Procedure Name Date Entry Date Standard Description CPT-72768 Venipuncture Draw Fee 10:55:08 CDT CPT-21149 TSH - LAB USE ONLY 10:55:08 CDT CPT-25042 Free T4 - LAB USE ONLY 10:55:07 CDT CPT-48131 CMP - LAB USE ONLY 10:55:07 CDT CPT-02135 CBC with Diff - LAB USE ONLY 10:55:07 CDT CPT-000 Give Immunizations Due 15:58:05 CDT CPT-29210 Administration 2+ single or combination vaccines inc oral 16:09:35 CDT CPT-49955 Administration single or combination vaccine inc oral 16 :09:35 CDT CPT-76761 Hepatitis A ped/adol 2 dose schedule 16:09:35 CDT 09/04 CPT-47573 Meningococcal Conjugate Vacine (Menactra) 16:09:35 CDT CPT-PV Prev. Care Visit 15:58:05 CDT CPT-58327 Venipuncture Draw Fee 12:00:59 CDT CPT-PV Prev. Care Visit 12:00:08 CDT
--- OUTSIDE RECORDS SUMMARY | 2017-12-11 10:26 | XMS REPORT | Clinical Summary ---
Author Author Admin, EDDIE Organization [facility] Address Unknown Phone Unavailable Allergies, Adverse [...] 0.25 MG ORAL TABS 1 daily RISPERIDONE 36875670083 Active Iesha Cardoza MD Active ZOLOFT 50 MG ORAL TABS 1 daiy SERTRALINE HCL 95490659373 Active Iesha Cardoza MD Active LORAZEPAM 0.5 MG TABS 1/2 - 1 pill by mouth twice nightly if needed for sleep LORAZEPAM 79194989601 No Longer Active Iesha Cardoza MD Active FLUTICASONE PROPIONATE 50 MCG/ACT SUSP 1 puff in each nostril daily FLUTICASONE PROPIONATE 60798984658 No Longer Active Hannah Bowman MD PhD Active TRANSDERM-SCOP 1.5 MG PT72 use every 3rd day SCOPOLAMINE BASE 01713155380 No Longer Active Hannah Bowman MD PhD Active AUGMENTIN 875-125 MG TABS 1 bid AMOXICILLIN-POT CLAVULANATE 17166162875 No Longer Active Iesha Cardoza MD Active AMOXICILLIN 875 MG TABS 1 bid AMOXICILLIN 17798684010 No Longer Active Iesha Cardoza MD Active OFLOXACIN 0.3 % OPHTH SOLN 4-5 of the eye drops in the ear bid OFLOXACIN 35515537704 No Longer Active Iesha Cardoza MD Active AMOXICILLIN 875 MG TABS 1 bid AMOXICILLIN 875 MG TABS 434910 AMOXICILLIN Inactive TRANSDERM-SCOP 1.5 MG PT72 use every 3rd day TRANSDERM-SCOP 1.5 MG PT72 SCOPOLAMINE BASE Inactive FLUTICASONE PROPIONATE 50 MCG/ACT SUSP 1 puff in each nostril daily FLUTICASONE PROPIONATE 50 MCG/ACT SUSP 1258313 FLUTICASONE PROPIONATE Inactive LORAZEPAM 0.5 MG TABS 1/2 - 1 pill by mouth twice nightly if needed for sleep LORAZEPAM 0.5 MG TABS 897740 LORAZEPAM Inactive OFLOXACIN 0.3 % OPHTH SOLN 4-5 of the eye drops in the ear bid OFLOXACIN 0.3 % OPHTH SOLN 130499 OFLOXACIN Inactive AUGMENTIN 875-125 MG TABS 1 bid AUGMENTIN 875-125 MG TABS 284349 AMOXICILLIN-POT CLAVULANATE Inactive Advance Directives Directive Description Start Date LETTER OF AUTHORITY Immunizations Vaccine Administration Date Value Standard Description Hepatitis A vaccine, ped/adol, 2 dose (Havrix 2 dose ped/adol, Vaqta ped/adol) , #2 Havrix (2 dose - Ped/Adol) [CVX83] hepatitis A vaccine, pediatric/adolescent dosage, 2 dose schedule Adacel (Tetanus, reduced Diphtheria, and acellular Pertussis Immunization) Adacel [VTS411] tetanus toxoid, reduced diphtheria toxoid, and acellular [...] 2.83 m[iU]/mL 0.36-3.74 sodium, serum 140 mmol/L 549-192 8060/10/06 carbon dioxide, venous blood 32.4 mmol/L 21.0-32.0 [...] 142-424 Encounters Code Encounter Date Provider Facility CPT-10386 Level 3 Est. Patient 13:45:53 CDT Iesha Cardoza MD [facility] CPT-37536 Level 3 Est. 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 Patient 15:46:29 WOOD HEEL FINISHER Iesha Cardoza MD [facility] CPT-89664 Level 3 Est. Patient 16:05:57 CDT Iesha Cradoza MD [facility] Procedures Code Procedure Name Date Entry Date Standard Description CPT-62536 Venipuncture Draw Fee 10:55:08 CDT CPT-83796 TSH - LAB USE ONLY 10:55:08 CDT CPT-46422 Free T4 - LAB USE ONLY 10:55:07 CDT CPT-58429 CMP - LAB USE ONLY 10:55:07 CDT CPT-33113 CBC with Diff - LAB USE ONLY 10:55:07 CDT CPT-000 Give Immunizations Due 15:58:05 CDT CPT-54564 Administration 2+ single or combination vaccines inc oral 16:09:35 CDT CPT-88560 Administration single or combination vaccine inc oral 16 :09:35 CDT CPT-80954 Hepatitis A ped/adol 2 dose schedule 16:09:35 CDT 09/04 CPT-75026 Meningococcal Conjugate Vacine (Menactra) 16:09:35 CDT CPT-PV Prev. Care Visit 15:58:05 CDT CPT-92049 Venipuncture Draw Fee 12:00:59 CDT CPT-PV Prev. Care Visit 12:00:08 CDT
--- OUTSIDE RECORDS SUMMARY | 2017-12-11 10:26 | XMS REPORT | Clinical Summary ---
Author Author Admin, EDDIE Organization [facility] Address Unknown Phone Unavailable Allergies, [...] 0.25 MG ORAL TABS 1 daily RISPERIDONE 10082655757 Active Iesha Cardoza MD Active ZOLOFT 50 MG ORAL TABS 1 daiy SERTRALINE HCL 66302637477 Active Iesha Cardoza MD Active LORAZEPAM 0.5 MG TABS 1/2 - 1 pill by mouth twice nightly if needed for sleep LORAZEPAM 65033342087 No Longer Active Iesha Cardoza MD Active FLUTICASONE PROPIONATE 50 MCG/ACT SUSP 1 puff in each nostril daily FLUTICASONE PROPIONATE 34440522642 No Longer Active Hannah Bowman MD PhD Active TRANSDERM-SCOP 1.5 MG PT72 use every 3rd day SCOPOLAMINE BASE 65205008048 No Longer Active Hannah Bowman MD PhD Active AUGMENTIN 875-125 MG TABS 1 bid AMOXICILLIN-POT CLAVULANATE 04027406756 No Longer Active Iesha Cardoza MD Active AMOXICILLIN 875 MG TABS 1 bid AMOXICILLIN 85229097464 No Longer Active Iesha Cardoza MD Active OFLOXACIN 0.3 % OPHTH SOLN 4-5 of the eye drops in the ear bid OFLOXACIN 03194771317 No Longer Active Iesha Cardoza MD Active AMOXICILLIN 875 MG TABS 1 bid AMOXICILLIN 875 MG TABS 522644 AMOXICILLIN Inactive TRANSDERM-SCOP 1.5 MG PT72 use every 3rd day TRANSDERM-SCOP 1.5 MG PT72 SCOPOLAMINE BASE Inactive FLUTICASONE PROPIONATE 50 MCG/ACT SUSP 1 puff in each nostril daily FLUTICASONE PROPIONATE 50 MCG/ACT SUSP 8411961 FLUTICASONE PROPIONATE Inactive LORAZEPAM 0.5 MG TABS 1/2 - 1 pill by mouth twice nightly if needed for sleep LORAZEPAM 0.5 MG TABS 176763 LORAZEPAM Inactive OFLOXACIN 0.3 % OPHTH SOLN 4-5 of the eye drops in the ear bid OFLOXACIN 0.3 % OPHTH SOLN 066366 OFLOXACIN Inactive AUGMENTIN 875-125 MG TABS 1 bid AUGMENTIN 875-125 MG TABS 861092 AMOXICILLIN-POT CLAVULANATE Inactive Advance Directives Directive Description Start Date LETTER OF AUTHORITY Immunizations Vaccine Administration Date Value Standard Description Hepatitis A vaccine, ped/adol, 2 dose (Havrix 2 dose ped/adol, Vaqta ped/adol) , #2 Havrix (2 dose - Ped/Adol) [CVX83] hepatitis A vaccine, pediatric/adolescent dosage, 2 dose schedule Adacel (Tetanus, reduced Diphtheria, and acellular Pertussis Immunization) Adacel [LKM009] tetanus toxoid, reduced diphtheria toxoid, and acellular [...] Measured Encounters Code Encounter Date Provider Facility CPT-30220 Level 3 Est. Patient 13:45:53 CDT Iesha Cardoza MD [facility] CPT-48394 Level 3 Est. 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 Patient 16:05:57 CDT Iesha Cardoza MD [facility] Procedures Code Procedure Name Date Entry Date Standard Description CPT-000 Give Immunizations Due 15:58:05 CDT CPT-81231 Administration 2+ single or combination vaccines inc oral 16:09:35 CDT CPT-65345 Administration single or combination vaccine inc oral 16 :09:35 CDT CPT-13282 Hepatitis A ped/adol 2 dose schedule 16:09:35 CDT 09/04 CPT-43617 Meningococcal Conjugate Vacine (Menactra) 16:09:35 CDT CPT-PV Prev. Care Visit 15:58:05 CDT CPT-92940 Venipuncture Draw Fee 12:00:59 CDT CPT-PV Prev. Care Visit 12:00:08 CDT
--- OUTSIDE RECORDS SUMMARY | 2017-12-11 10:26 | XMS REPORT | Clinical Summary ---
Author Author Admin, EDDIE Organization [facility] Address Unknown Phone Unavailable Allergies, [...] MD Sinusitis-Acute ICD-461.9 Inactive Iesha Cardoza MD Sinusitis-Acute ICD-461.9 Inactive Iesha Cardoza MD Fatigue ICD-780.79 Inactive Iesha Cardoza MD Fatigue ICD-780.79 Inactive Iesha Cardoza MD Constipation ICD-564.00 Inactive Iesha Cardoza MD Dandruff ICD-690.18 Inactive Iesha Cardoza MD Medication List Medication Instructions Start Date Stop Date Generic Name NDC Status Provider Patient Instruction FLUTICASONE PROPIONATE 50 MCG/ACT SUSP 1 puff in each nostril daily FLUTICASONE PROPIONATE 36831449004 Active Iesha Cardoza MD Active RISPERIDONE 0.25 MG ORAL TABS 1 daily RISPERIDONE 17147373199 Active Iesha Cardoza MD Active ZOLOFT 50 MG ORAL TABS 1 daiy SERTRALINE HCL 00470506408 Active Iesha Cardoza MD Active LORAZEPAM 0.5 MG TABS 1/2 - 1 pill by mouth twice nightly if needed for sleep LORAZEPAM 54050086930 No Longer Active Iesha Cardoza MD Active FLUTICASONE PROPIONATE 50 MCG/ACT SUSP 1 puff in each nostril daily FLUTICASONE PROPIONATE 67784053997 No Longer Active Hannah Bowman MD PhD Active TRANSDERM-SCOP 1.5 MG PT72 use every 3rd day SCOPOLAMINE BASE 66824623204 No Longer Active Hannah Bowman MD PhD Active AUGMENTIN 875-125 MG TABS 1 bid AMOXICILLIN-POT CLAVULANATE 22901101533 No Longer Active Iesha Cardoza MD Active AMOXICILLIN 875 MG TABS 1 bid AMOXICILLIN 65984546558 No Longer Active Iesha Cardoza MD Active OFLOXACIN 0.3 % OPHTH SOLN 4-5 of the eye drops in the ear bid OFLOXACIN 72733053387 No Longer Active Iesha Cardoza MD Active AMOXICILLIN 875 MG TABS 1 bid AMOXICILLIN 875 MG TABS 486897 AMOXICILLIN Inactive TRANSDERM-SCOP 1.5 MG PT72 use every 3rd day TRANSDERM-SCOP 1.5 MG PT72 SCOPOLAMINE BASE Inactive FLUTICASONE PROPIONATE 50 MCG/ACT SUSP 1 puff in each nostril daily FLUTICASONE PROPIONATE 50 MCG/ACT SUSP 8017052 FLUTICASONE PROPIONATE Inactive LORAZEPAM 0.5 MG TABS 1/2 - 1 pill by mouth twice nightly if needed for sleep LORAZEPAM 0.5 MG TABS 662115 LORAZEPAM Inactive OFLOXACIN 0.3 % OPHTH SOLN 4-5 of the eye drops in the ear bid OFLOXACIN 0.3 % OPHTH SOLN 040002 OFLOXACIN Inactive AUGMENTIN 875-125 MG TABS 1 bid AUGMENTIN 875-125 MG TABS 330061 AMOXICILLIN-POT CLAVULANATE Inactive Advance Directives Directive Description Start Date LETTER OF AUTHORITY Immunizations Vaccine Administration Date Value Standard Description Hepatitis A vaccine, ped/adol, 2 dose (Havrix 2 dose ped/adol, Vaqta ped/adol) , #2 Havrix (2 dose - Ped/Adol) [CVX83] hepatitis A vaccine, pediatric/adolescent dosage, 2 dose schedule Adacel (Tetanus, reduced Diphtheria, and acellular Pertussis Immunization) Adacel [[id number]] tetanus toxoid, reduced diphtheria toxoid, and acellular [...] 2.83 m[iU]/mL 0.36-3.74 sodium, serum 140 mmol/L 643-292 6111/10/06 carbon dioxide, venous blood 32.4 mmol/L 21.0-32.0 [...] 142-424 Encounters Code Encounter Date Provider Facility CPT-13466 Level 3 Est. Patient 13:45:53 CDT Iesha Cardoza MD [facility] CPT-91198 Level 3 Est. 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 Patient 16:05:57 CDT Iesha Cardoza MD [facility] Procedures Code Procedure Name Date Entry Date Standard Description CPT-20747 Venipuncture Draw Fee 10:55:08 CDT CPT-72134 TSH - LAB USE ONLY 10:55:08 CDT CPT-85369 Free T4 - LAB USE ONLY 10:55:07 CDT CPT-94972 CMP - LAB USE ONLY 10:55:07 CDT CPT-76052 CBC with Diff - LAB USE ONLY 10:55:07 CDT CPT-000 Give Immunizations Due 15:58:05 CDT CPT-11445 Administration 2+ single or combination vaccines inc oral 16:09:35 CDT CPT-87741 Administration single or combination vaccine inc oral 16 :09:35 CDT CPT-27531 Hepatitis A ped/adol 2 dose schedule 16:09:35 CDT 09/04 CPT-17979 Meningococcal Conjugate Vacine (Menactra) 16:09:35 CDT CPT-PV Prev. Care Visit 15:58:05 CDT CPT-24308 Venipuncture Draw Fee 12:00:59 CDT CPT-PV Prev. Care Visit 12:00:08 CDT
--- OUTSIDE RECORDS SUMMARY | 2017-12-11 10:27 | XMS REPORT | Clinical Summary ---
Author Author Admin, EDDIE Organization [facility] Address Unknown Phone Unavailable Allergies, Adverse [...] 0.25 MG ORAL TABS 1 daily RISPERIDONE 63229567538 Active Iesha Cardoza MD Active ZOLOFT 50 MG ORAL TABS 1 daiy SERTRALINE HCL 27950287434 Active Iesha Cardoza MD Active LORAZEPAM 0.5 MG TABS 1/2 - 1 pill by mouth twice nightly if needed for sleep LORAZEPAM 86659505860 No Longer Active Iesha Cardoza MD Active FLUTICASONE PROPIONATE 50 MCG/ACT SUSP 1 puff in each nostril daily FLUTICASONE PROPIONATE 77582166318 No Longer Active Hannah Bowman MD PhD Active TRANSDERM-SCOP 1.5 MG PT72 use every 3rd day SCOPOLAMINE BASE 57698334933 No Longer Active Hannah Bowman MD PhD Active AUGMENTIN 875-125 MG TABS 1 bid AMOXICILLIN-POT CLAVULANATE 77653386961 No Longer Active Iesha Cardoza MD Active AMOXICILLIN 875 MG TABS 1 bid AMOXICILLIN 82048311845 No Longer Active Iesha Cardoza MD Active OFLOXACIN 0.3 % OPHTH SOLN 4-5 of the eye drops in the ear bid OFLOXACIN 87267414495 No Longer Active Iesha Cardoza MD Active AMOXICILLIN 875 MG TABS 1 bid AMOXICILLIN 875 MG TABS 837216 AMOXICILLIN Inactive TRANSDERM-SCOP 1.5 MG PT72 use every 3rd day TRANSDERM-SCOP 1.5 MG PT72 SCOPOLAMINE BASE Inactive FLUTICASONE PROPIONATE 50 MCG/ACT SUSP 1 puff in each nostril daily FLUTICASONE PROPIONATE 50 MCG/ACT SUSP 8742567 FLUTICASONE PROPIONATE Inactive LORAZEPAM 0.5 MG TABS 1/2 - 1 pill by mouth twice nightly if needed for sleep LORAZEPAM 0.5 MG TABS 826788 LORAZEPAM Inactive OFLOXACIN 0.3 % OPHTH SOLN 4-5 of the eye drops in the ear bid OFLOXACIN 0.3 % OPHTH SOLN 553135 OFLOXACIN Inactive AUGMENTIN 875-125 MG TABS 1 bid AUGMENTIN 875-125 MG TABS 559491 AMOXICILLIN-POT CLAVULANATE Inactive Advance Directives Directive Description Start Date LETTER OF AUTHORITY Immunizations Vaccine Administration Date Value Standard Description Hepatitis A vaccine, ped/adol, 2 dose (Havrix 2 dose ped/adol, Vaqta ped/adol) , #2 Havrix (2 dose - Ped/Adol) [CVX83] hepatitis A vaccine, pediatric/adolescent dosage, 2 dose schedule Adacel (Tetanus, reduced Diphtheria, and acellular Pertussis Immunization) Adacel [[id number]] tetanus toxoid, reduced diphtheria toxoid, and acellular [...] 2.83 m[iU]/mL 0.36-3.74 sodium, serum 140 mmol/L 379-438 2011/10/06 carbon dioxide, venous blood 32.4 mmol/L 21.0-32.0 [...] 142-424 Encounters Code Encounter Date Provider Facility CPT-77042 Level 3 Est. Patient 13:45:53 CDT Iesha Cardoza MD [facility] CPT-53452 Level 3 Est. 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 Patient 10:50:17 CONCRETE SWIMMING POOL INSTALLER Iesha Cardoza MD [facility] CPT-83188 Level 3 Est. Patient 15:46:29 CONCRETE SWIMMING POOL INSTALLER Iesha Cardoza MD [facility] CPT-85016 Level 3 Est. Patient 16:05:57 CDT Iesha Cardoza MD [facility] Procedures Code Procedure Name Date Entry Date Standard Description CPT-38856 Venipuncture Draw Fee 10:55:08 CDT CPT-71258 TSH - LAB USE ONLY 10:55:08 CDT CPT-40331 Free T4 - LAB USE ONLY 10:55:07 CDT CPT-48470 CMP - LAB USE ONLY 10:55:07 CDT CPT-72631 CBC with Diff - LAB USE ONLY 10:55:07 CDT CPT-000 Give Immunizations Due 15:58:05 CDT CPT-34662 Administration 2+ single or combination vaccines inc oral 16:09:35 CDT CPT-36607 Administration single or combination vaccine inc oral 16 :09:35 CDT CPT-05352 Hepatitis A ped/adol 2 dose schedule 16:09:35 CDT 09/04 CPT-83895 Meningococcal Conjugate Vacine (Menactra) 16:09:35 CDT CPT-PV Prev. Care Visit 15:58:05 CDT CPT-14041 Venipuncture Draw Fee 12:00:59 CDT CPT-PV Prev. Care Visit 12:00:08 CDT
--- OUTSIDE RECORDS SUMMARY | 2017-12-11 10:27 | XMS REPORT | Clinical Summary ---
Author Author Admin, EDDIE Organization [facility] Address Unknown Phone Unavailable Allergies, Adverse [...] puff in each nostril daily FLUTICASONE PROPIONATE 89996129769 No Longer Active Iesha Cardoza MD Active RISPERIDONE 0.25 MG ORAL TABLET 1 daily RISPERIDONE 69625363922 Active Iesha Cardoza MD Active ZOLOFT 50 MG ORAL TABLET 1 daiy SERTRALINE HCL 22809040612 Active Iesha Cardoza MD Active LORAZEPAM 0.5 MG ORAL TABLET 1/2 - 1 pill by mouth twice nightly if needed for sleep LORAZEPAM 24171764704 No Longer Active Iesha Cardoza MD Active FLUTICASONE PROPIONATE 50 MCG/ACT NASAL SUSPENSION 1 puff in each nostril daily FLUTICASONE PROPIONATE 10535345648 No Longer Active Hannah Bowman MD PhD Active TRANSDERM-SCOP (1.5 MG) 1 MG/3DAYS TRANSDERMAL PATCH 72 HOUR use every 3rd day SCOPOLAMINE BASE 54485094095 No Longer Active Hannah Bowman MD PhD Active AUGMENTIN 875-125 MG ORAL TABLET 1 bid AMOXICILLIN- POT CLAVULANATE 52905547134 No Longer Active Iesha Cardoza MD Active AMOXICILLIN 875 MG ORAL TABLET 1 bid AMOXICILLIN 38443555596 No Longer Active Iesha Cardoza MD Active OFLOXACIN 0.3 % OPHTHALMIC SOLUTION 4-5 of the eye drops in the ear bid 01/03 OFLOXACIN 29461005656 No Longer Active Iesha Cardoza MD Active AMOXICILLIN 875 MG ORAL TABLET 1 bid AMOXICILLIN 875 MG ORAL TABLET 310838 AMOXICILLIN Inactive TRANSDERM-SCOP (1.5 MG) 1 MG/3DAYS TRANSDERMAL PATCH 72 HOUR use every 3rd day TRANSDERM-SCOP (1.5 MG) 1 MG/3DAYS TRANSDERMAL PATCH 72 HOUR SCOPOLAMINE BASE Inactive FLUTICASONE PROPIONATE 50 MCG/ACT NASAL SUSPENSION 1 puff in each nostril daily FLUTICASONE PROPIONATE 50 MCG/ACT NASAL SUSPENSION 5515033 FLUTICASONE PROPIONATE Inactive LORAZEPAM 0.5 MG ORAL TABLET 1/2 - 1 pill by mouth twice nightly if needed for sleep LORAZEPAM 0.5 MG ORAL TABLET 958470 LORAZEPAM Inactive OFLOXACIN 0.3 % OPHTHALMIC SOLUTION 4-5 of the eye drops in the ear bid 01/03 OFLOXACIN 0.3 % OPHTHALMIC SOLUTION 060499 OFLOXACIN Inactive AUGMENTIN 875-125 MG ORAL TABLET 1 bid AUGMENTIN 875- 125 MG ORAL TABLET 165044 AMOXICILLIN-POT CLAVULANATE Inactive FLUTICASONE PROPIONATE 50 MCG/ACT NASAL SUSPENSION 1 puff in each nostril daily FLUTICASONE PROPIONATE 50 MCG/ACT NASAL SUSPENSION 9528762 FLUTICASONE PROPIONATE Inactive Advance Directives Directive Description Start Date LETTER OF AUTHORITY Immunizations Vaccine Administration Date Value Standard Description Hepatitis A vaccine, ped/adol, 2 dose (Havrix 2 dose ped/adol, Vaqta ped/adol) , #2 Havrix (2 dose - Ped/Adol) [CVX83] hepatitis A vaccine, pediatric/adolescent dosage, 2 dose schedule Adacel (Tetanus, reduced Diphtheria, and acellular Pertussis Immunization) Adacel [[id number]] tetanus toxoid, reduced diphtheria toxoid, and acellular [...] Measured Encounters Code Encounter Date Provider Facility CPT-01713 Level 2 Est. 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 Patient 13:45:53 CDT Iesha Cardoza MD [facility] CPT-22306 Level 3 Est. Patient 14:46:41 WASH DRILLER Hannah Bowman MD [facility] CPT-13915 Level 3 Est. Patient 10:50:17 WASH DRILLER Iesha Cardoza MD [facility] CPT-38165 Level 3 Est. Patient 15:46:29 WASH DRILLER Iesha Cardoza MD [facility] CPT-09806 Level 3 Est. Patient 16:05:57 CDT Iesha Cardoza MD [facility] Procedures Code Procedure Name Date Entry Date Standard Description CPT-61569 Venipuncture Draw Fee 10:55:08 CDT CPT-17706 TSH - LAB USE ONLY 10:55:08 CDT CPT-35730 Free T4 - LAB USE ONLY 10:55:07 CDT CPT-68904 CMP - LAB USE ONLY 10:55:07 CDT CPT-55472 CBC with Diff - LAB USE ONLY 10:55:07 CDT CPT-000 Give Immunizations Due 15:58:05 CDT CPT-09658 Administration 2+ single or combination vaccines inc oral 16:09:35 CDT CPT-36327 Administration single or combination vaccine inc oral 16 :09:35 CDT CPT-64176 Hepatitis A ped/adol 2 dose schedule 16:09:35 CDT 09/04 CPT-49959 Meningococcal Conjugate Vacine (Menactra) 16:09:35 CDT CPT-PV Prev. Care Visit 15:58:05 CDT CPT-44071 Venipuncture Draw Fee 12:00:59 CDT CPT-PV Prev. Care Visit 12:00:08 CDT
--- OUTSIDE RECORDS SUMMARY | 2017-12-11 10:28 | XMS REPORT | Clinical Summary ---
Author Author Admin, EDDIE Organization [facility] Address Unknown Phone Unavailable Allergies, Adverse Reactions, [...] 0.25 MG ORAL TABS 1 daily RISPERIDONE 89042114730 Active Iesha Cardoza MD Active ZOLOFT 50 MG ORAL TABS 1 daiy SERTRALINE HCL 56341037444 Active Iesha Cardoza MD Active LORAZEPAM 0.5 MG TABS 1/2 - 1 pill by mouth twice nightly if needed for sleep LORAZEPAM 43017286070 No Longer Active eIsha Cardoza MD Active FLUTICASONE PROPIONATE 50 MCG/ACT SUSP 1 puff in each nostril daily FLUTICASONE PROPIONATE 31792449389 No Longer Active Hannah Bowman MD PhD Active TRANSDERM-SCOP 1.5 MG PT72 use every 3rd day SCOPOLAMINE BASE 85568303152 No Longer Active Hannah Bowman MD PhD Active AUGMENTIN 875-125 MG TABS 1 bid AMOXICILLIN-POT CLAVULANATE 63738015863 No Longer Active Iesha Cardoza MD Active AMOXICILLIN 875 MG TABS 1 bid AMOXICILLIN 84964088655 No Longer Active Iesha Cardoza MD Active OFLOXACIN 0.3 % OPHTH SOLN 4-5 of the eye drops in the ear bid OFLOXACIN 38151546777 No Longer Active Iesha Cardoza MD Active AMOXICILLIN 875 MG TABS 1 bid AMOXICILLIN 875 MG TABS 176726 AMOXICILLIN Inactive TRANSDERM-SCOP 1.5 MG PT72 use every 3rd day TRANSDERM-SCOP 1.5 MG PT72 SCOPOLAMINE BASE Inactive FLUTICASONE PROPIONATE 50 MCG/ACT SUSP 1 puff in each nostril daily FLUTICASONE PROPIONATE 50 MCG/ACT SUSP 5756237 FLUTICASONE PROPIONATE Inactive LORAZEPAM 0.5 MG TABS 1/2 - 1 pill by mouth twice nightly if needed for sleep LORAZEPAM 0.5 MG TABS 772101 LORAZEPAM Inactive OFLOXACIN 0.3 % OPHTH SOLN 4-5 of the eye drops in the ear bid OFLOXACIN 0.3 % OPHTH SOLN 736391 OFLOXACIN Inactive AUGMENTIN 875-125 MG TABS 1 bid AUGMENTIN 875-125 MG TABS 432247 AMOXICILLIN-POT CLAVULANATE Inactive Advance Directives Directive Description Start Date LETTER OF AUTHORITY Immunizations Vaccine Administration Date Value Standard Description Hepatitis A vaccine, ped/adol, 2 dose (Havrix 2 dose ped/adol, Vaqta ped/adol) , #2 Havrix (2 dose - Ped/Adol) [CVX83] hepatitis A vaccine, pediatric/adolescent dosage, 2 dose schedule Adacel (Tetanus, reduced Diphtheria, and acellular Pertussis Immunization) Adacel [[id number]] tetanus toxoid, reduced diphtheria toxoid, and acellular [...] 2.83 m[iU]/mL 0.36-3.74 sodium, serum 140 mmol/L 884-035 5529/10/06 carbon dioxide, venous blood 32.4 mmol/L 21.0-32.0 [...] 142-424 Encounters Code Encounter Date Provider Facility CPT-24727 Level 3 Est. Patient 13:45:53 CDT Iesha Cardoza MD [facility] CPT-82867 Level 3 Est. 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 Patient 10:50:17 REAL ESTATE PROFESSOR Iesha Cardoza MD [facility] CPT-29710 Level 3 Est. Patient 15:46:29 REAL ESTATE PROFESSOR Iesha Cardoza MD [facility] CPT-74030 Level 3 Est. Patient 16:05:57 CDT Iesha Cardoza MD [facility] Procedures Code Procedure Name Date Entry Date Standard Description CPT-56150 Venipuncture Draw Fee 10:55:08 CDT CPT-21706 TSH - LAB USE ONLY 10:55:08 CDT CPT-89193 Free T4 - LAB USE ONLY 10:55:07 CDT CPT-03652 CMP - LAB USE ONLY 10:55:07 CDT CPT-72999 CBC with Diff - LAB USE ONLY 10:55:07 CDT CPT-000 Give Immunizations Due 15:58:05 CDT CPT-53024 Administration 2+ single or combination vaccines inc oral 16:09:35 CDT CPT-59053 Administration single or combination vaccine inc oral 16 :09:35 CDT CPT-40328 Hepatitis A ped/adol 2 dose schedule 16:09:35 CDT 09/04 CPT-13526 Meningococcal Conjugate Vacine (Menactra) 16:09:35 CDT CPT-PV Prev. Care Visit 15:58:05 CDT CPT-67808 Venipuncture Draw Fee 12:00:59 CDT CPT-PV Prev. Care Visit 12:00:08 CDT
--- OUTSIDE RECORDS SUMMARY | 2017-12-11 10:28 | XMS REPORT | Clinical Summary ---
Author Author Admin, EDDIE Organization [facility] Address Unknown Phone Unavailable Allergies, Adverse Reactions, [...] 0.25 MG ORAL TABS 1 daily RISPERIDONE 22797064054 Active Iesha Cardoza MD Active ZOLOFT 50 MG ORAL TABS 1 daiy SERTRALINE HCL 98909898343 Active Iesha Cardoza MD Active LORAZEPAM 0.5 MG TABS 1/2 - 1 pill by mouth twice nightly if needed for sleep LORAZEPAM 13111081825 No Longer Active Iesha Cardoza MD Active FLUTICASONE PROPIONATE 50 MCG/ACT SUSP 1 puff in each nostril daily FLUTICASONE PROPIONATE 13290381245 No Longer Active Hannah Bowman MD PhD Active TRANSDERM-SCOP 1.5 MG PT72 use every 3rd day SCOPOLAMINE BASE 91858074590 No Longer Active Hannah Bowman MD PhD Active AUGMENTIN 875-125 MG TABS 1 bid AMOXICILLIN-POT CLAVULANATE 32083802266 No Longer Active Iesha Cardoza MD Active AMOXICILLIN 875 MG TABS 1 bid AMOXICILLIN 43018026331 No Longer Active Iesha Cardoza MD Active OFLOXACIN 0.3 % OPHTH SOLN 4-5 of the eye drops in the ear bid OFLOXACIN 97753748521 No Longer Active Iesha Cardoza MD Active AMOXICILLIN 875 MG TABS 1 bid AMOXICILLIN 875 MG TABS 466928 AMOXICILLIN Inactive TRANSDERM-SCOP 1.5 MG PT72 use every 3rd day TRANSDERM-SCOP 1.5 MG PT72 SCOPOLAMINE BASE Inactive FLUTICASONE PROPIONATE 50 MCG/ACT SUSP 1 puff in each nostril daily FLUTICASONE PROPIONATE 50 MCG/ACT SUSP 3474286 FLUTICASONE PROPIONATE Inactive LORAZEPAM 0.5 MG TABS 1/2 - 1 pill by mouth twice nightly if needed for sleep LORAZEPAM 0.5 MG TABS 423457 LORAZEPAM Inactive OFLOXACIN 0.3 % OPHTH SOLN 4-5 of the eye drops in the ear bid OFLOXACIN 0.3 % OPHTH SOLN 222951 OFLOXACIN Inactive AUGMENTIN 875-125 MG TABS 1 bid AUGMENTIN 875-125 MG TABS 760858 AMOXICILLIN-POT CLAVULANATE Inactive Advance Directives Directive Description Start Date LETTER OF AUTHORITY Immunizations Vaccine Administration Date Value Standard Description Hepatitis A vaccine, ped/adol, 2 dose (Havrix 2 dose ped/adol, Vaqta ped/adol) , #2 Havrix (2 dose - Ped/Adol) [CVX83] hepatitis A vaccine, pediatric/adolescent dosage, 2 dose schedule Adacel (Tetanus, reduced Diphtheria, and acellular Pertussis Immunization) Adacel [[id number]] tetanus toxoid, reduced diphtheria toxoid, and acellular [...] 2.83 m[iU]/mL 0.36-3.74 sodium, serum 140 mmol/L 960-951 2528/10/06 carbon dioxide, venous blood 32.4 mmol/L 21.0-32.0 [...] 142-424 Encounters Code Encounter Date Provider Facility CPT-57032 Level 3 Est. Patient 13:45:53 CDT Iesha Cardoza MD [facility] CPT-23952 Level 3 Est. 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 Patient 10:50:17 MECHANICAL DOOR REPAIRER Iesha Cardoza MD [facility] CPT-69532 Level 3 Est. Patient 15:46:29 MECHANICAL DOOR REPAIRER Iesha Cardoza MD [facility] CPT-12346 Level 3 Est. Patient 16:05:57 CDT Iesha Cardoza MD [facility] Procedures Code Procedure Name Date Entry Date Standard Description CPT-92296 Venipuncture Draw Fee 10:55:08 CDT CPT-26388 TSH - LAB USE ONLY 10:55:08 CDT CPT-99133 Free T4 - LAB USE ONLY 10:55:07 CDT CPT-96350 CMP - LAB USE ONLY 10:55:07 CDT CPT-49713 CBC with Diff - LAB USE ONLY 10:55:07 CDT CPT-000 Give Immunizations Due 15:58:05 CDT CPT-34977 Administration 2+ single or combination vaccines inc oral 16:09:35 CDT CPT-11455 Administration single or combination vaccine inc oral 16 :09:35 CDT CPT-68228 Hepatitis A ped/adol 2 dose schedule 16:09:35 CDT 09/04 CPT-45391 Meningococcal Conjugate Vacine (Menactra) 16:09:35 CDT CPT-PV Prev. Care Visit 15:58:05 CDT CPT-79802 Venipuncture Draw Fee 12:00:59 CDT CPT-PV Prev. Care Visit 12:00:08 CDT
--- OUTSIDE RECORDS SUMMARY | 2017-12-11 10:28 | XMS REPORT | Clinical Summary ---
Author Author Admin, EDDIE Organization [facility] Address Unknown Phone Unavailable Allergies, Adverse [...] Acute sinusitis, unspecified Fatigue 780.79 Resolved Iesha Cardzoa MD Other malaise and fatigue Fatigue 780.79 [...] 0.25 MG ORAL TABS 1 daily RISPERIDONE 36629325518 Active Iesha Cardoza MD Active ZOLOFT 50 MG ORAL TABS 1 daiy SERTRALINE HCL 02194987007 Active Iesha Cardoza MD Active LORAZEPAM 0.5 MG TABS 1/2 - 1 pill by mouth twice nightly if needed for sleep LORAZEPAM 03957173626 No Longer Active Iesha Cardoza MD Active FLUTICASONE PROPIONATE 50 MCG/ACT SUSP 1 puff in each nostril daily FLUTICASONE PROPIONATE 39862335104 No Longer Active Hannah Bowman MD PhD Active TRANSDERM-SCOP 1.5 MG PT72 use every 3rd day SCOPOLAMINE BASE 29350693822 No Longer Active Hannah Bowman MD PhD Active AUGMENTIN 875-125 MG TABS 1 bid AMOXICILLIN-POT CLAVULANATE 88186338471 No Longer Active Iesha Cardoza MD Active AMOXICILLIN 875 MG TABS 1 bid AMOXICILLIN 48337330510 No Longer Active Iesha Cardoza MD Active OFLOXACIN 0.3 % OPHTH SOLN 4-5 of the eye drops in the ear bid OFLOXACIN 09421229881 No Longer Active Iesha Cardoza MD Active AMOXICILLIN 875 MG TABS 1 bid AMOXICILLIN 875 MG TABS 198970 AMOXICILLIN Inactive TRANSDERM-SCOP 1.5 MG PT72 use every 3rd day TRANSDERM-SCOP 1.5 MG PT72 SCOPOLAMINE BASE Inactive FLUTICASONE PROPIONATE 50 MCG/ACT SUSP 1 puff in each nostril daily FLUTICASONE PROPIONATE 50 MCG/ACT SUSP 5027337 FLUTICASONE PROPIONATE Inactive LORAZEPAM 0.5 MG TABS 1/2 - 1 pill by mouth twice nightly if needed for sleep LORAZEPAM 0.5 MG TABS 093073 LORAZEPAM Inactive OFLOXACIN 0.3 % OPHTH SOLN 4-5 of the eye drops in the ear bid OFLOXACIN 0.3 % OPHTH SOLN 922497 OFLOXACIN Inactive AUGMENTIN 875-125 MG TABS 1 bid AUGMENTIN 875-125 MG TABS 253947 AMOXICILLIN-POT CLAVULANATE Inactive Advance Directives Directive Description Start Date LETTER OF AUTHORITY Immunizations Vaccine Administration Date Value Standard Description Hepatitis A vaccine, ped/adol, 2 dose (Havrix 2 dose ped/adol, Vaqta ped/adol) , #2 Havrix (2 dose - Ped/Adol) [CVX83] hepatitis A vaccine, pediatric/adolescent dosage, 2 dose schedule Adacel (Tetanus, reduced Diphtheria, and acellular Pertussis Immunization) Adacel [NMP520] tetanus toxoid, reduced diphtheria toxoid, and acellular [...] Measured Encounters Code Encounter Date Provider Facility CPT-67073 Level 3 Est. Patient 13:45:53 CDT Iesha Cardoza MD [facility] CPT-96181 Level 3 Est. 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 Patient 10:50:17 HYPERBARIC WELDER DIVER Iesha Cardoza MD [facility] CPT-91007 Level 3 Est. Patient 15:46:29 HYPERBARIC WELDER DIVER Iesha Cardoza MD [facility] CPT-33814 Level 3 Est. Patient 16:05:57 CDT Iesha Cardoza MD [facility] Procedures Code Procedure Name Date Entry Date Standard Description CPT-000 Give Immunizations Due 15:58:05 CDT CPT-72386 Administration 2+ single or combination vaccines inc oral 16:09:35 CDT CPT-21266 Administration single or combination vaccine inc oral 16 :09:35 CDT CPT-06985 Hepatitis A ped/adol 2 dose schedule 16:09:35 CDT 09/04 CPT-83225 Meningococcal Conjugate Vacine (Menactra) 16:09:35 CDT CPT-PV Prev. Care Visit 15:58:05 CDT CPT-47564 Venipuncture Draw Fee 12:00:59 CDT CPT-PV Prev. Care Visit 12:00:08 CDT
--- OUTSIDE RECORDS SUMMARY | 2017-12-11 10:29 | XMS REPORT | Clinical Summary ---
[...] diseases WELL CHILD EXAMINATION V20.2 Active Katarzyna Wilosn Routine or child health check Sinusitis-Acute 461.9 [...] puff in each nostril daily FLUTICASONE PROPIONATE [id number] No Longer Active Iesha Cardoza MD Active RISPERIDONE 0.25 MG ORAL TABLET 1 daily RISPERIDONE 99295263585 Active Iesha Cardoza MD Active ZOLOFT 50 MG ORAL TABLET 1 daiy SERTRALINE HCL 35488970391 Active Iesha Cardoza MD Active LORAZEPAM 0.5 MG ORAL TABLET 1/2 - 1 pill by mouth twice nightly if needed for sleep LORAZEPAM 63654107476 No Longer Active Iesha Cardoza MD Active FLUTICASONE PROPIONATE 50 MCG/ACT NASAL SUSPENSION 1 puff in each nostril daily FLUTICASONE PROPIONATE 96195897042 No Longer Active Hannah Bowman MD PhD Active TRANSDERM-SCOP (1.5 MG) 1 MG/3DAYS TRANSDERMAL PATCH 72 HOUR use every 3rd day SCOPOLAMINE BASE 43707382944 No Longer Active Hannah Bowman MD PhD Active AUGMENTIN 875-125 MG ORAL TABLET 1 bid AMOXICILLIN- POT CLAVULANATE 72289642764 No Longer Active Iesha Cardoza MD Active AMOXICILLIN 875 MG ORAL TABLET 1 bid AMOXICILLIN 69884640055 No Longer Active Iesha Cardoza MD Active OFLOXACIN 0.3 % OPHTHALMIC SOLUTION 4-5 of the eye drops in the ear bid 01/03 OFLOXACIN 56012608858 No Longer Active Iesha Cardoza MD Active AMOXICILLIN 875 MG ORAL TABLET 1 bid AMOXICILLIN 875 MG ORAL TABLET 527127 AMOXICILLIN Inactive TRANSDERM-SCOP (1.5 MG) 1 MG/3DAYS TRANSDERMAL PATCH 72 HOUR use every 3rd day TRANSDERM-SCOP (1.5 MG) 1 MG/3DAYS TRANSDERMAL PATCH 72 HOUR SCOPOLAMINE BASE Inactive FLUTICASONE PROPIONATE 50 MCG/ACT NASAL SUSPENSION 1 puff in each nostril daily FLUTICASONE PROPIONATE 50 MCG/ACT NASAL SUSPENSION 4010944 FLUTICASONE PROPIONATE Inactive LORAZEPAM 0.5 MG ORAL TABLET 1/2 - 1 pill by mouth twice nightly if needed for sleep LORAZEPAM 0.5 MG ORAL TABLET 498753 LORAZEPAM Inactive OFLOXACIN 0.3 % OPHTHALMIC SOLUTION 4-5 of the eye drops in the ear bid 01/03 OFLOXACIN 0.3 % OPHTHALMIC SOLUTION 738973 OFLOXACIN Inactive AUGMENTIN 875-125 MG ORAL TABLET 1 bid AUGMENTIN 875- 125 MG ORAL TABLET 701548 AMOXICILLIN-POT CLAVULANATE Inactive FLUTICASONE PROPIONATE 50 MCG/ACT NASAL SUSPENSION 1 puff in each nostril daily FLUTICASONE PROPIONATE 50 MCG/ACT NASAL SUSPENSION 9974277 FLUTICASONE PROPIONATE Inactive Advance Directives Directive Description Start Date LETTER OF AUTHORITY Immunizations Vaccine Administration Date Value Standard Description Hepatitis A vaccine, ped/adol, 2 dose (Havrix 2 dose ped/adol, Vaqta ped/adol) , #2 Havrix (2 dose - Ped/Adol) [CVX83] hepatitis A vaccine, pediatric/adolescent dosage, 2 dose schedule Adacel (Tetanus, reduced Diphtheria, and acellular Pertussis Immunization) Adacel [[id number]] tetanus toxoid, reduced diphtheria toxoid, and acellular pertussis vaccine, adsorbed chicken pox immunization #1 Historical varicella virus vaccine MPSV4 (meningococcal polysaccharide vaccination) Historical meningococcal polysaccharide vaccine (MPSV4) hepatitis A immunization #1 Historical hepatitis A vaccine, unspecified formulation oral polio vaccine (OPV) #4 Historical poliovirus vaccine, unspecified formulation DPT immunization #5 Historical Hemophilus influenza B immunization #4 Historical Haemophilus influenzae type b vaccine, conjugate unspecified formulation DPT immunization #4 Historical MMR (measles, mumps, rubella) virus immunization #1 Historical Hemophilus influenza B immunization #3 Historical Haemophilus influenzae type b vaccine, conjugate unspecified formulation oral polio vaccine (OPV) #3 Historical poliovirus vaccine, unspecified formulation hepatitis B vaccine #3 Historical hepatitis B vaccine, unspecified formulation DPT immunization #3 Historical Hemophilus influenza B immunization #2 Historical Haemophilus influenzae type b vaccine, conjugate unspecified formulation oral polio vaccine (OPV) #2 Historical poliovirus vaccine, unspecified formulation DPT immunization #2 Historical oral polio vaccine (OPV) #1 Historical poliovirus vaccine, unspecified formulation hepatitis B vaccine #2 given Historical hepatitis B vaccine, unspecified formulation DPT immunization #1 Historical Hemophilus influenza B immunization #1 Historical Haemophilus influenzae type b vaccine, conjugate unspecified formulation hepatitis B vaccine #1 given Historical hepatitis B vaccine, unspecified formulation Vital Signs Date Name Value Unit Range Description blood pressure, diastolic 64 mm[Hg] BP nation blood pressure, systolic 118 mm[Hg] BP sys height E&M 65.25 [in_us] Bdy height temperature E&M 97.0 [degF] Body temperature weight E&M 139 [lb_av] Weight Measured Encounters Code Encounter Date Provider Facility CPT-54539 Level 2 Est. Patient 23:52:20 PYROMETER OPERATOR Iesha Cardoza MD [facility] CPT-35888 Level 3 Est. Patient 13:45:53 CDT Iesha Cardoza MD [facility] CPT-77964 Level 3 Est. Patient 14:46:41 PYROMETER OPERATOR Hannah Bowman MD [facility] CPT-98157 Level 3 Est. Patient 10:50:17 PYROMETER OPERATOR Iesha Cardoza MD [facility] CPT-22252 Level 3 Est. Patient 15:46:29 PYROMETER OPERATOR Iesha Cardoza MD [facility] CPT-96895 Level 3 Est. Patient 16:05:57 CDT Iesha Cardoza MD [facility] Procedures Code Procedure Name Date Entry Date Standard Description CPT-00181 Venipuncture Draw Fee 10:55:08 CDT CPT-90888 TSH - LAB USE ONLY 10:55:08 CDT CPT-77343 Free T4 - LAB USE ONLY 10:55:07 CDT CPT-03776 CMP - LAB USE ONLY 10:55:07 CDT CPT-09173 CBC with Diff - LAB USE ONLY 10:55:07 CDT CPT-000 Give Immunizations Due 15:58:05 CDT CPT-59756 Administration 2+ single or combination vaccines inc oral 16:09:35 CDT CPT-28553 Administration single or combination vaccine inc oral 16 :09:35 CDT CPT-44582 Hepatitis A ped/adol 2 dose schedule 16:09:35 CDT 09/04 CPT-80812 Meningococcal Conjugate Vacine (Menactra) 16:09:35 CDT CPT-PV Prev. Care Visit 15:58:05 CDT CPT-52252 Venipuncture Draw Fee 12:00:59 CDT CPT-PV Prev. Care Visit 12:00:08 CDT
--- OUTSIDE RECORDS SUMMARY | 2017-12-11 10:29 | XMS REPORT | Clinical Summary ---
Author Author Admin, EDDIE Organization [facility] Address Unknown Phone Unavailable Allergies, Adverse Reactions, [...] 0.25 MG ORAL TABS 1 daily RISPERIDONE 63799296536 Active Iesha Cardoza MD Active ZOLOFT 50 MG ORAL TABS 1 daiy SERTRALINE HCL 40135429831 Active Iesha Cardoza MD Active LORAZEPAM 0.5 MG TABS 1/2 - 1 pill by mouth twice nightly if needed for sleep LORAZEPAM 21423681717 No Longer Active Iesha Cardoza MD Active FLUTICASONE PROPIONATE 50 MCG/ACT SUSP 1 puff in each nostril daily FLUTICASONE PROPIONATE 97032937652 No Longer Active Hannah Bowman MD PhD Active TRANSDERM-SCOP 1.5 MG PT72 use every 3rd day SCOPOLAMINE BASE 28365484361 No Longer Active Hannah Bowman MD PhD Active AUGMENTIN 875-125 MG TABS 1 bid AMOXICILLIN-POT CLAVULANATE 32249543118 No Longer Active Iesha Cardoza MD Active AMOXICILLIN 875 MG TABS 1 bid AMOXICILLIN 03808851837 No Longer Active Iesha Cardoza MD Active OFLOXACIN 0.3 % OPHTH SOLN 4-5 of the eye drops in the ear bid OFLOXACIN 62108217280 No Longer Active Iesha Cardoza MD Active AMOXICILLIN 875 MG TABS 1 bid AMOXICILLIN 875 MG TABS 265296 AMOXICILLIN Inactive TRANSDERM-SCOP 1.5 MG PT72 use every 3rd day TRANSDERM-SCOP 1.5 MG PT72 SCOPOLAMINE BASE Inactive FLUTICASONE PROPIONATE 50 MCG/ACT SUSP 1 puff in each nostril daily FLUTICASONE PROPIONATE 50 MCG/ACT SUSP 5728445 FLUTICASONE PROPIONATE Inactive LORAZEPAM 0.5 MG TABS 1/2 - 1 pill by mouth twice nightly if needed for sleep LORAZEPAM 0.5 MG TABS 005959 LORAZEPAM Inactive OFLOXACIN 0.3 % OPHTH SOLN 4-5 of the eye drops in the ear bid OFLOXACIN 0.3 % OPHTH SOLN 293657 OFLOXACIN Inactive AUGMENTIN 875-125 MG TABS 1 bid AUGMENTIN 875-125 MG TABS 021582 AMOXICILLIN-POT CLAVULANATE Inactive Advance Directives Directive Description Start Date LETTER OF AUTHORITY Immunizations Vaccine Administration Date Value Standard Description Hepatitis A vaccine, ped/adol, 2 dose (Havrix 2 dose ped/adol, Vaqta ped/adol) , #2 Havrix (2 dose - Ped/Adol) [CVX83] hepatitis A vaccine, pediatric/adolescent dosage, 2 dose schedule Adacel (Tetanus, reduced Diphtheria, and acellular Pertussis Immunization) Adacel [[id number]] tetanus toxoid, reduced diphtheria toxoid, and acellular [...] Measured Encounters Code Encounter Date Provider Facility CPT-31926 Level 3 Est. Patient 13:45:53 CDT Iesha Cardoza MD [facility] CPT-93090 Level 3 Est. Patient 14:46:41 EPIC ANALYST Hannah Bowman MD PhD [facility] CPT-63596 Level 3 Est. Patient 10:50:17 EPIC ANALYST Iesha Cardoza MD [facility] CPT-86976 Level 3 Est. Patient 15:46:29 EPIC ANALYST Iesha Cardoza MD [facility] CPT-69172 Level 3 Est. Patient 16:05:57 CDT Iesha Cardoza MD [facility] Procedures Code Procedure Name Date Entry Date Standard Description CPT-71330 Venipuncture Draw Fee 10:55:08 CDT CPT-76107 TSH - LAB USE ONLY 10:55:08 CDT CPT-56670 Free T4 - LAB USE ONLY 10:55:07 CDT CPT-95711 CMP - LAB USE ONLY 10:55:07 CDT CPT-47834 CBC with Diff - LAB USE ONLY 10:55:07 CDT CPT-000 Give Immunizations Due 15:58:05 CDT CPT-15139 Administration 2+ single or combination vaccines inc oral 16:09:35 CDT CPT-77668 Administration single or combination vaccine inc oral 16 :09:35 CDT CPT-62028 Hepatitis A ped/adol 2 dose schedule 16:09:35 CDT 09/04 CPT-51000 Meningococcal Conjugate Vacine (Menactra) 16:09:35 CDT CPT-PV Prev. Care Visit 15:58:05 CDT CPT-82072 Venipuncture Draw Fee 12:00:59 CDT CPT-PV Prev. Care Visit 12:00:08 CDT
--- OUTSIDE RECORDS SUMMARY | 2017-12-11 10:29 | XMS REPORT | Clinical Summary ---
Author Author Admin, EDDIE Organization [facility] Address Unknown Phone Unavailable Allergies, Adverse [...] puff in each nostril daily FLUTICASONE PROPIONATE 24508621541 No Longer Active Iesha Cardoza MD Active RISPERIDONE 0.25 MG ORAL TABLET 1 daily RISPERIDONE 79582405085 Active Iesha Cardoza MD Active ZOLOFT 50 MG ORAL TABLET 1 daiy SERTRALINE HCL 78678904007 Active Iesha Cardoza MD Active LORAZEPAM 0.5 MG ORAL TABLET 1/2 - 1 pill by mouth twice nightly if needed for sleep LORAZEPAM 45039835054 No Longer Active Iesha Cardoza MD Active FLUTICASONE PROPIONATE 50 MCG/ACT NASAL SUSPENSION 1 puff in each nostril daily FLUTICASONE PROPIONATE 56155386088 No Longer Active Hannah Bowman MD PhD Active TRANSDERM-SCOP (1.5 MG) 1 MG/3DAYS TRANSDERMAL PATCH 72 HOUR use every 3rd day SCOPOLAMINE BASE 87625889976 No Longer Active Hannah Bowman MD PhD Active AUGMENTIN 875-125 MG ORAL TABLET 1 bid AMOXICILLIN- POT CLAVULANATE 39881887771 No Longer Active Iesha Cardoza MD Active AMOXICILLIN 875 MG ORAL TABLET 1 bid AMOXICILLIN 81380647790 No Longer Active Iesha Cardoza MD Active OFLOXACIN 0.3 % OPHTHALMIC SOLUTION 4-5 of the eye drops in the ear bid 01/03 OFLOXACIN 20822557340 No Longer Active Iesha Cardoza MD Active AMOXICILLIN 875 MG ORAL TABLET 1 bid AMOXICILLIN 875 MG ORAL TABLET 112952 AMOXICILLIN Inactive TRANSDERM-SCOP (1.5 MG) 1 MG/3DAYS TRANSDERMAL PATCH 72 HOUR use every 3rd day TRANSDERM-SCOP (1.5 MG) 1 MG/3DAYS TRANSDERMAL PATCH 72 HOUR SCOPOLAMINE BASE Inactive FLUTICASONE PROPIONATE 50 MCG/ACT NASAL SUSPENSION 1 puff in each nostril daily FLUTICASONE PROPIONATE 50 MCG/ACT NASAL SUSPENSION 8678413 FLUTICASONE PROPIONATE Inactive LORAZEPAM 0.5 MG ORAL TABLET 1/2 - 1 pill by mouth twice nightly if needed for sleep LORAZEPAM 0.5 MG ORAL TABLET 168842 LORAZEPAM Inactive OFLOXACIN 0.3 % OPHTHALMIC SOLUTION 4-5 of the eye drops in the ear bid 01/03 OFLOXACIN 0.3 % OPHTHALMIC SOLUTION 737788 OFLOXACIN Inactive AUGMENTIN 875-125 MG ORAL TABLET 1 bid AUGMENTIN 875- 125 MG ORAL TABLET 494999 AMOXICILLIN-POT CLAVULANATE Inactive FLUTICASONE PROPIONATE 50 MCG/ACT NASAL SUSPENSION 1 puff in each nostril daily FLUTICASONE PROPIONATE 50 MCG/ACT NASAL SUSPENSION 1172887 FLUTICASONE PROPIONATE Inactive Advance Directives Directive Description Start Date LETTER OF AUTHORITY Immunizations Vaccine Administration Date Value Standard Description Hepatitis A vaccine, ped/adol, 2 dose (Havrix 2 dose ped/adol, Vaqta ped/adol) , #2 Havrix (2 dose - Ped/Adol) [CVX83] hepatitis A vaccine, pediatric/adolescent dosage, 2 dose schedule Adacel (Tetanus, reduced Diphtheria, and acellular Pertussis Immunization) Adacel [AZU003] tetanus toxoid, reduced diphtheria toxoid, and acellular [...] Measured Encounters Code Encounter Date Provider Facility CPT-19471 Level 2 Est. Patient 23:52:20 EXHIBIT TECHNICIAN Iesha Cardoza MD [facility] CPT-10231 Level 3 Est. Patient 13:45:53 CDT Iesha Cardoza MD [facility] CPT-53346 Level 3 Est. Patient 14:46:41 EXHIBIT TECHNICIAN Hannah Bowman MD [facility] CPT-76430 Level 3 Est. Patient 10:50:17 EXHIBIT TECHNICIAN Iesha Cardoza MD [facility] CPT-52741 Level 3 Est. Patient 15:46:29 EXHIBIT TECHNICIAN Iesha Cardoza MD [facility] CPT-08880 Level 3 Est. Patient 16:05:57 CDT Iesha Cardoza MD [facility] Procedures Code Procedure Name Date Entry Date Standard Description CPT-43513 Venipuncture Draw Fee 10:55:08 CDT CPT-45762 TSH - LAB USE ONLY 10:55:08 CDT CPT-16635 Free T4 - LAB USE ONLY 10:55:07 CDT CPT-79243 CMP - LAB USE ONLY 10:55:07 CDT CPT-24549 CBC with Diff - LAB USE ONLY 10:55:07 CDT CPT-000 Give Immunizations Due 15:58:05 CDT CPT-37775 Administration 2+ single or combination vaccines inc oral 16:09:35 CDT CPT-22345 Administration single or combination vaccine inc oral 16 :09:35 CDT CPT-98528 Hepatitis A ped/adol 2 dose schedule 16:09:35 CDT 09/04 CPT-89594 Meningococcal Conjugate Vacine (Menactra) 16:09:35 CDT CPT-PV Prev. Care Visit 15:58:05 CDT CPT-23791 Venipuncture Draw Fee 12:00:59 CDT CPT-PV Prev. Care Visit 12:00:08 CDT
--- OUTSIDE RECORDS SUMMARY | 2017-12-11 10:30 | XMS REPORT | Clinical Summary ---
Author Author Admin, EDDIE Organization [facility] Address Unknown Phone Unavailable Allergies, [...] 0.25 MG ORAL TABS 1 daily RISPERIDONE 84150505025 Active Iesha Cardoza MD Active ZOLOFT 50 MG ORAL TABS 1 daiy SERTRALINE HCL 01994776932 Active Iesha Cardoza MD Active LORAZEPAM 0.5 MG TABS 1/2 - 1 pill by mouth twice nightly if needed for sleep LORAZEPAM 48872906254 No Longer Active Iesha Cardoza MD Active FLUTICASONE PROPIONATE 50 MCG/ACT SUSP 1 puff in each nostril daily FLUTICASONE PROPIONATE 21845755763 No Longer Active Hannah Bowman MD PhD Active TRANSDERM-SCOP 1.5 MG PT72 use every 3rd day SCOPOLAMINE BASE 24498389167 No Longer Active Hannah Bowman MD PhD Active AUGMENTIN 875-125 MG TABS 1 bid AMOXICILLIN-POT CLAVULANATE 60255137447 No Longer Active Iesha Cardoza MD Active AMOXICILLIN 875 MG TABS 1 bid AMOXICILLIN 79788347464 No Longer Active Iesha Cardoza MD Active OFLOXACIN 0.3 % OPHTH SOLN 4-5 of the eye drops in the ear bid OFLOXACIN 92492155933 No Longer Active Iesha aCrdoza MD Active AMOXICILLIN 875 MG TABS 1 bid AMOXICILLIN 875 MG TABS 461146 AMOXICILLIN Inactive TRANSDERM-SCOP 1.5 MG PT72 use every 3rd day TRANSDERM-SCOP 1.5 MG PT72 SCOPOLAMINE BASE Inactive FLUTICASONE PROPIONATE 50 MCG/ACT SUSP 1 puff in each nostril daily FLUTICASONE PROPIONATE 50 MCG/ACT SUSP 0789975 FLUTICASONE PROPIONATE Inactive LORAZEPAM 0.5 MG TABS 1/2 - 1 pill by mouth twice nightly if needed for sleep LORAZEPAM 0.5 MG TABS 068640 LORAZEPAM Inactive OFLOXACIN 0.3 % OPHTH SOLN 4-5 of the eye drops in the ear bid OFLOXACIN 0.3 % OPHTH SOLN 223969 OFLOXACIN Inactive AUGMENTIN 875-125 MG TABS 1 bid AUGMENTIN 875-125 MG TABS 547159 AMOXICILLIN-POT CLAVULANATE Inactive Advance Directives Directive Description Start Date LETTER OF AUTHORITY Immunizations Vaccine Administration Date Value Standard Description Hepatitis A vaccine, ped/adol, 2 dose (Havrix 2 dose ped/adol, Vaqta ped/adol) , #2 Havrix (2 dose - Ped/Adol) [CVX83] hepatitis A vaccine, pediatric/adolescent dosage, 2 dose schedule Adacel (Tetanus, reduced Diphtheria, and acellular Pertussis Immunization) Adacel [[id number]] tetanus toxoid, reduced diphtheria toxoid, and acellular [...] Measured Encounters Code Encounter Date Provider Facility CPT-07266 Level 3 Est. Patient 13:45:53 CDT Iesha Cardoza MD [facility] CPT-27691 Level 3 Est. Patient 14:46:41 [employer]ORTS [employer]PAR[employer] Hannah Bowman MD PhD [facility] CPT-39039 Level 3 Est. Patient 10:50:17 [employer] Iesha Cardoza MD [facility] CPT-36787 Level 3 Est. Patient 15:46:29 [employer] Iesha Cardoza MD [facility] CPT-91672 Level 3 Est. Patient 16:05:57 CDT Iesha Cardoza MD [facility] Procedures Code Procedure Name Date Entry Date Standard Description CPT-01010 Venipuncture Draw Fee 10:55:08 CDT CPT-15118 TSH - LAB USE ONLY 10:55:08 CDT CPT-78850 Free T4 - LAB USE ONLY 10:55:07 CDT CPT-17640 CMP - LAB USE ONLY 10:55:07 CDT CPT-68267 CBC with Diff - LAB USE ONLY 10:55:07 CDT CPT-000 Give Immunizations Due 15:58:05 CDT CPT-33240 Administration 2+ single or combination vaccines inc oral 16:09:35 CDT CPT-79139 Administration single or combination vaccine inc oral 16 :09:35 CDT CPT-67297 Hepatitis A ped/adol 2 dose schedule 16:09:35 CDT 09/04 CPT-51003 Meningococcal Conjugate Vacine (Menactra) 16:09:35 CDT CPT-PV Prev. Care Visit 15:58:05 CDT CPT-37024 Venipuncture Draw Fee 12:00:59 CDT CPT-PV Prev. Care Visit 12:00:08 CDT
--- OUTSIDE RECORDS SUMMARY | 2017-12-11 10:31 | XMS REPORT | Clinical Summary ---
Author Author Admin, EDDIE Organization [facility] Address Unknown Phone Unavailable Allergies, Adverse Reactions, Alerts Allergy Name Reaction Description Start Date Severity Status Provider No Known Allergies VAL[place] Conditions or Problems Problem Name Problem Code [...] and other eczema, unspecified cause Dandruff 690.18 Active Iesha Cardoza MD Other seborrheic dermatitis Sinusitis-Acute 461.9 Inactive Iesha Cardoza MD Acute sinusitis, unspecified Fatigue 780.79 Active Iesha Cardoza MD Other malaise and fatigue Fatigue 780.79 Active Hannah Bowman MD PhD Other malaise and fatigue Constipation 564.00 Active Hannah Bowman MD PhD Constipation, unspecified OTITIS MEDIA-ACUTE ICD-382.9 Inactive Iesha Cardoza MD Sinusitis-Acute ICD-461.9 Inactive Iesha Cardoza MD Sinusitis-Acute ICD-461.9 Inactive Iesha Cardoza MD Medication List Medication Instructions Start Date Stop Date Generic Name NDC Status Provider Patient Instruction FLUTICASONE PROPIONATE 50 MCG/ACT SUSP 1 puff in each nostril daily FLUTICASONE PROPIONATE 68251474785 No Longer Active Hannah Bowman MD PhD Active TRANSDERM-SCOP 1.5 MG PT72 use every 3rd day SCOPOLAMINE BASE 36930621565 No Longer Active Hannah Bowman MD PhD Active AUGMENTIN 875-125 MG TABS 1 bid AMOXICILLIN-POT CLAVULANATE 08211917693 No Longer Active Iesha Cardoza MD Active AMOXICILLIN 875 MG TABS 1 bid AMOXICILLIN 64471647389 No Longer Active Iesha Cardoza MD Active OFLOXACIN 0.3 % OPHTH SOLN 4-5 of the eye drops in the ear bid OFLOXACIN 43103561001 No Longer Active Iesha Cardoza MD Active AMOXICILLIN 875 MG TABS 1 bid AMOXICILLIN 875 MG TABS 921200 AMOXICILLIN Inactive TRANSDERM-SCOP 1.5 MG PT72 use every 3rd day TRANSDERM-SCOP 1.5 MG PT72 SCOPOLAMINE BASE Inactive FLUTICASONE PROPIONATE 50 MCG/ACT SUSP 1 puff in each nostril daily FLUTICASONE PROPIONATE 50 MCG/ACT SUSP 603474 FLUTICASONE PROPIONATE Inactive OFLOXACIN 0.3 % OPHTH SOLN 4-5 of the eye drops in the ear bid OFLOXACIN 0.3 % OPHTH SOLN 601514 OFLOXACIN Inactive AUGMENTIN 875-125 MG TABS 1 bid AUGMENTIN 875-125 MG TABS 001890 AMOXICILLIN-POT CLAVULANATE Inactive Advance Directives Directive Description Start Date LETTER OF AUTHORITY Immunizations Vaccine Administration Date Value Standard Description Hepatitis A vaccine, ped/adol, 2 dose (Havrix 2 dose ped/adol, Vaqta ped/adol) , #2 Havrix (2 dose - Ped/Adol) [CVX83] hepatitis A vaccine, pediatric/adolescent dosage, 2 dose schedule Adacel (Tetanus, reduced Diphtheria, and acellular Pertussis Immunization) Adacel [[id number]] tetanus toxoid, reduced diphtheria toxoid, and acellular [...] Range Description blood pressure, diastolic - 8462-4 78 mm[Hg] BP nation blood pressure, systolic - 8480-6 118 mm[Hg] BP sys temperature E&M 97 [degF] Body temperature weight E&M - 3141-9 156 [lb_av] Weight Measured Diagnostic Results Date Name Value Unit Range Description Lab Report: MONO w/Rflx EBV, Thyroid Stimulating Hormone (L), Free Thyro ... - Chemistry TSH 1.26 m[iU]/mL 0.36-3.74 thyroxine, serum, free 0.93 ng/dL 0.76-1.46 sodium, serum 141 mmol/L 329-500 0708/02/13 potassium, serum 4.5 mmol/L 3.5-5.2 chloride, serum 101 mmol/L 98-107 carbon dioxide, venous blood 33.0 mmol/L 21.0-32.0 blood glucose 80 mg/dL 65-110 urea nitrogen, blood 13 mg/dL 7-18 creatinine, serum 1.20 mg/dL 0.60-1.30 alanine aminotransferase (SGPT), serum 28 U/L 12-78 aspartate aminotransferase (SGOT), serum 16 U/L 15-37 calcium, serum 8.8 mg/dL 8.5-10.1 bilirubin, serum, total 0.60 mg/dL 0.00-1.00 Lab Report: MONO w/Rflx EBV, Thyroid Stimulating Hormone (L), Free Thyro ... - Hematology leukocyte count, blood 7.3 10^3/MM^3 10*3/mm3 4.6-10.2 neutrophils as percent of blood leukocytes 54.1 % 42.2-75.2 monocytes as percent of blood leukocytes 7.1 % 1.7-9.3 lymphocytes as percent of blood leukocytes 36.8 % 20.5-51.1 erythrocyte (RBC) count 4.65 10^6/MM^3 10*6/mm3 4.69-6.13 hemoglobin, blood 16.1 g/dL 13.5-17.5 hematocrit, blood 47.2 % 41.0-53.0 mean corpuscular volume, RBC 102 fL 80-97 mean corpuscular hemoglobin, RBC 34.7 pg 27.0-31.2 mean corpuscular hemoglobin concentration, RBC 34.2 G/DL % 31.8- 35.4 red blood cell distribution width 13.8 % 11.6-14.8 platelet count 314 10^3/MM^3 10*3/mm3 142-424 Encounters Code Encounter Date Provider Facility CPT-41973 Level 3 Est. Patient 14:46:41 SPEED BELT SANDER Hannah Bowman MD PhD [facility] CPT-21830 Level 3 Est. Patient 10:50:17 SPEED BELT SANDER Iesha Cardoza MD [facility] CPT-75218 Level 3 Est. Patient 15:46:29 SPEED BELT SANDER Iesha Cardoza MD [facility] CPT-85945 Level 3 Est. Patient 16:05:57 CDT Iesha Cardoza MD [facility] Procedures Code Procedure Name Date Entry Date Standard Description CPT-000 Give Immunizations Due 15:58:05 CDT CPT-95142 Administration 2+ single or combination vaccines inc oral 16:09:35 CDT CPT-51699 Administration single or combination vaccine inc oral 16 :09:35 CDT CPT-41128 Hepatitis A ped/adol 2 dose schedule 16:09:35 CDT 09/04 CPT-60398 Meningococcal Conjugate Vacine (Menactra) 16:09:35 CDT CPT-PV Prev. Care Visit 15:58:05 CDT CPT-24856 Venipuncture Draw Fee 12:00:59 CDT CPT-PV Prev. Care Visit 12:00:08 CDT
--- OUTSIDE RECORDS SUMMARY | 2017-12-11 10:31 | XMS REPORT | Clinical Summary ---
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 Hannah Bowman MD PhD Active FLUTICASONE PROPIONATE 50 MCG/ACT SUSP 1 puff in each nostril daily FLUTICASONE PROPIONATE [id number] No Longer Active Hannah Bowman MD PhD Active TRANSDERM-SCOP 1.5 MG PT72 use every 3rd day SCOPOLAMINE BASE 96943085679 No Longer Active Hannah Bowman MD PhD Active AUGMENTIN 875-125 MG TABS 1 bid AMOXICILLIN-POT CLAVULANATE [id number] No Longer Active Iesha Cardoza MD Active AMOXICILLIN 875 MG TABS 1 bid AMOXICILLIN 51418254887 No Longer Active Iesha Cardoza MD Active OFLOXACIN 0.3 % OPHTH SOLN 4-5 of the eye drops in the ear bid OFLOXACIN 12403438926 No Longer Active Iesha Cardoza MD Active AMOXICILLIN 875 MG TABS 1 bid AMOXICILLIN 875 MG TABS 976324 AMOXICILLIN Inactive TRANSDERM-SCOP 1.5 MG PT72 use every 3rd day TRANSDERM-SCOP 1.5 MG PT72 SCOPOLAMINE BASE Inactive FLUTICASONE PROPIONATE 50 MCG/ACT SUSP 1 puff in each nostril daily FLUTICASONE PROPIONATE 50 MCG/ACT SUSP 397950 FLUTICASONE PROPIONATE Inactive OFLOXACIN 0.3 % OPHTH SOLN 4-5 of the eye drops in the ear bid OFLOXACIN 0.3 % OPHTH SOLN 739256 OFLOXACIN Inactive AUGMENTIN 875-125 MG TABS 1 bid AUGMENTIN 875-125 MG TABS 051974 AMOXICILLIN-POT CLAVULANATE Inactive Advance Directives Directive Description Start Date LETTER OF AUTHORITY Immunizations Vaccine Administration Date Value Standard Description Hepatitis A vaccine, ped/adol, 2 dose (Havrix 2 dose ped/adol, Vaqta ped/adol) , #2 Havrix (2 dose - Ped/Adol) [CVX83] hepatitis A vaccine, pediatric/adolescent dosage, 2 dose schedule Adacel (Tetanus, reduced Diphtheria, and acellular Pertussis Immunization) Adacel [[id number]] tetanus toxoid, reduced diphtheria toxoid, and acellular [...] Hormone (L), Free Thyro ... - Chemistry sodium, serum 141 mmol/L 890-661 4397/02/13 potassium, serum 4.5 mmol/L 3.5-5.2 chloride, serum 101 mmol/L 98-107 carbon dioxide, venous blood 33.0 mmol/L 21.0-32.0 blood glucose 80 mg/dL 65-110 urea nitrogen, blood 13 mg/dL 7-18 creatinine, serum 1.20 mg/dL 0.60-1.30 alanine aminotransferase (SGPT), serum 28 U/L 12-78 aspartate aminotransferase (SGOT), serum 16 U/L 15-37 calcium, serum 8.8 mg/dL 8.5-10.1 bilirubin, serum, total 0.60 mg/dL 0.00-1.00 thyroxine, serum, free 0.93 ng/dL 0.76-1.46 TSH 1.26 m[iU]/mL 0.36-3.74 Lab Report: MONO w/Rflx EBV, Thyroid Stimulating Hormone (L), Free Thyro ... - Hematology monocytes as percent of blood leukocytes 7.1 % 1.7-9.3 neutrophils as percent of blood leukocytes 54.1 % 42.2-75.2 leukocyte count, blood 7.3 10^3/MM^3 10*3/mm3 4.6-10.2 lymphocytes as percent of blood leukocytes 36.8 [...] 142-424 Encounters Code Encounter Date Provider Facility CPT-84843 Level 3 Est. 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 Patient 10:50:17 DRAFTING INSTRUCTOR Iesha Cardoza MD [facility] CPT-12404 Level 3 Est. Patient 15:46:29 DRAFTING INSTRUCTOR Iesha Cardoza MD [facility] CPT-69307 Level 3 Est. Patient 16:05:57 CDT Iesha Cardoza MD [facility] Procedures Code Procedure Name Date Entry Date Standard Description CPT-000 Give Immunizations Due 15:58:05 CDT CPT-24815 Administration 2+ single or combination vaccines inc oral 16:09:35 CDT CPT-92370 Administration single or combination vaccine inc oral 16 :09:35 CDT CPT-52548 Hepatitis A ped/adol 2 dose schedule 16:09:35 CDT 09/04 CPT-83108 Meningococcal Conjugate Vacine (Menactra) 16:09:35 CDT CPT-PV Prev. Care Visit 15:58:05 CDT CPT-61531 Venipuncture Draw Fee 12:00:59 CDT CPT-PV Prev. Care Visit 12:00:08 CDT
--- OUTSIDE RECORDS SUMMARY | 2017-12-11 10:32 | XMS REPORT | Clinical Summary ---
Author Author Admin, EDDIE Organization [facility] Address Unknown Phone Unavailable Allergies, Adverse [...] puff in each nostril daily FLUTICASONE PROPIONATE [id number] No Longer Active Hannah Bowman MD PhD Active TRANSDERM-SCOP 1.5 MG PT72 use every 3rd day SCOPOLAMINE BASE 08019195446 No Longer Active Hannah Bowman MD PhD Active AUGMENTIN 875-125 MG TABS 1 bid AMOXICILLIN-POT CLAVULANATE 63515560248 No Longer Active Iesha Cardoza MD Active AMOXICILLIN 875 MG TABS 1 bid AMOXICILLIN 74603342806 No Longer Active Iesha Cardoza MD Active OFLOXACIN 0.3 % OPHTH SOLN 4-5 of the eye drops in the ear bid OFLOXACIN 08752986986 No Longer Active Iesha Cardoza MD Active AMOXICILLIN 875 MG TABS 1 bid AMOXICILLIN 875 MG TABS 204755 AMOXICILLIN Inactive TRANSDERM-SCOP 1.5 MG PT72 use every 3rd day TRANSDERM-SCOP 1.5 MG PT72 SCOPOLAMINE BASE Inactive FLUTICASONE PROPIONATE 50 MCG/ACT SUSP 1 puff in each nostril daily FLUTICASONE PROPIONATE 50 MCG/ACT SUSP 049199 FLUTICASONE PROPIONATE Inactive OFLOXACIN 0.3 % OPHTH SOLN 4-5 of the eye drops in the ear bid OFLOXACIN 0.3 % OPHTH SOLN 013330 OFLOXACIN Inactive AUGMENTIN 875-125 MG TABS 1 bid AUGMENTIN 875-125 MG TABS 835615 AMOXICILLIN-POT CLAVULANATE Inactive Advance Directives Directive Description Start Date LETTER OF AUTHORITY Immunizations Vaccine Administration Date Value Standard Description Hepatitis A vaccine, ped/adol, 2 dose (Havrix 2 dose ped/adol, Vaqta ped/adol) , #2 Havrix (2 dose - Ped/Adol) [CVX83] hepatitis A vaccine, pediatric/adolescent dosage, 2 dose schedule Adacel (Tetanus, reduced Diphtheria, and acellular Pertussis Immunization) Adacel [[id number]] tetanus toxoid, reduced diphtheria toxoid, and acellular [...] 0.93 ng/dL 0.76-1.46 sodium, serum 141 mmol/L 547-622 6354/02/13 potassium, serum 4.5 mmol/L 3.5-5.2 chloride, serum [...] 142-424 Encounters Code Encounter Date Provider Facility CPT-61533 Level 3 Est. 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 Patient 10:50:17 SUPERVISOR CAPACITOR PROCESSING Iesha Cardoza MD [facility] CPT-79179 Level 3 Est. Patient 15:46:29 SUPERVISOR CAPACITOR PROCESSING Iesha Cardoza MD [facility] CPT-00315 Level 3 Est. Patient 16:05:57 CDT Iesha Cardoza MD [facility] Procedures Code Procedure Name Date Entry Date Standard Description CPT-000 Give Immunizations Due 15:58:05 CDT CPT-66256 Administration 2+ single or combination vaccines inc oral 16:09:35 CDT CPT-47383 Administration single or combination vaccine inc oral 16 :09:35 CDT CPT-55198 Hepatitis A ped/adol 2 dose schedule 16:09:35 CDT 09/04 CPT-62489 Meningococcal Conjugate Vacine (Menactra) 16:09:35 CDT CPT-PV Prev. Care Visit 15:58:05 CDT CPT-36224 Venipuncture Draw Fee 12:00:59 CDT CPT-PV Prev. Care Visit 12:00:08 CDT
--- OUTSIDE RECORDS SUMMARY | 2017-12-11 10:32 | XMS REPORT | Clinical Summary ---
Author Author Admin, EDDIE Organization [facility] Address Unknown Phone Unavailable Allergies, Adverse Reactions, [...] puff in each nostril daily FLUTICASONE PROPIONATE [id number] No Longer Active Hannah Bowman MD PhD Active TRANSDERM-SCOP 1.5 MG PT72 use every 3rd day SCOPOLAMINE BASE 77282356518 No Longer Active Hannah Bowman MD PhD Active AUGMENTIN 875-125 MG TABS 1 bid AMOXICILLIN-POT CLAVULANATE [id number] No Longer Active Iesha Cardoza MD Active AMOXICILLIN 875 MG TABS 1 bid AMOXICILLIN 29508156915 No Longer Active Iesha Cardoza MD Active OFLOXACIN 0.3 % OPHTH SOLN 4-5 of the eye drops in the ear bid OFLOXACIN 37643530801 No Longer Active Iesha Cardoza MD Active AMOXICILLIN 875 MG TABS 1 bid AMOXICILLIN 875 MG TABS 719464 AMOXICILLIN Inactive TRANSDERM-SCOP 1.5 MG PT72 use every 3rd day TRANSDERM-SCOP 1.5 MG PT72 SCOPOLAMINE BASE Inactive FLUTICASONE PROPIONATE 50 MCG/ACT SUSP 1 puff in each nostril daily FLUTICASONE PROPIONATE 50 MCG/ACT SUSP 716927 FLUTICASONE PROPIONATE Inactive OFLOXACIN 0.3 % OPHTH SOLN 4-5 of the eye drops in the ear bid OFLOXACIN 0.3 % OPHTH SOLN 630015 OFLOXACIN Inactive AUGMENTIN 875-125 MG TABS 1 bid AUGMENTIN 875-125 MG TABS 068869 AMOXICILLIN-POT CLAVULANATE Inactive Advance Directives Directive Description Start Date LETTER OF AUTHORITY Immunizations Vaccine Administration Date Value Standard Description Hepatitis A vaccine, ped/adol, 2 dose (Havrix 2 dose ped/adol, Vaqta ped/adol) , #2 Havrix (2 dose - Ped/Adol) [CVX83] hepatitis A vaccine, pediatric/adolescent dosage, 2 dose schedule Adacel (Tetanus, reduced Diphtheria, and acellular Pertussis Immunization) Adacel [[id number]] tetanus toxoid, reduced diphtheria toxoid, and acellular [...] 0.93 ng/dL 0.76-1.46 sodium, serum 141 mmol/L 171-403 7551/02/13 potassium, serum 4.5 mmol/L 3.5-5.2 chloride, serum [...] 142-424 Encounters Code Encounter Date Provider Facility CPT-93559 Level 3 Est. 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 Patient 10:50:17 SECONDARY SPECIAL EDUCATION TEACHER Iesha Cardoza MD [facility] CPT-23164 Level 3 Est. Patient 15:46:29 SECONDARY SPECIAL EDUCATION TEACHER Iesha Cardoza MD [facility] CPT-75999 Level 3 Est. Patient 16:05:57 CDT Iesha Cardoza MD [facility] Procedures Code Procedure Name Date Entry Date Standard Description CPT-000 Give Immunizations Due 15:58:05 CDT CPT-36672 Administration 2+ single or combination vaccines inc oral 16:09:35 CDT CPT-13947 Administration single or combination vaccine inc oral 16 :09:35 CDT CPT-67989 Hepatitis A ped/adol 2 dose schedule 16:09:35 CDT 09/04 CPT-11637 Meningococcal Conjugate Vacine (Menactra) 16:09:35 CDT CPT-PV Prev. Care Visit 15:58:05 CDT CPT-50662 Venipuncture Draw Fee 12:00:59 CDT CPT-PV Prev. Care Visit 12:00:08 CDT
--- OUTSIDE RECORDS SUMMARY | 2017-12-11 10:33 | XMS REPORT | Clinical Summary ---
Author Author Admin, EDDIE Organization [facility] Address Unknown Phone Unavailable Allergies, Adverse Reactions, [...] puff in each nostril daily FLUTICASONE PROPIONATE [id number] No Longer Active Hannah Bowman MD PhD Active TRANSDERM-SCOP 1.5 MG PT72 use every 3rd day SCOPOLAMINE BASE 42052423600 No Longer Active Hannah Bowman MD PhD Active AUGMENTIN 875-125 MG TABS 1 bid AMOXICILLIN-POT CLAVULANATE 08505097970 No Longer Active Iesha Cardoza MD Active AMOXICILLIN 875 MG TABS 1 bid AMOXICILLIN 88060843144 No Longer Active Iesha Cardoza MD Active OFLOXACIN 0.3 % OPHTH SOLN 4-5 of the eye drops in the ear bid OFLOXACIN 46676480384 No Longer Active Iesha Cardoza MD Active AMOXICILLIN 875 MG TABS 1 bid AMOXICILLIN 875 MG TABS 600926 AMOXICILLIN Inactive TRANSDERM-SCOP 1.5 MG PT72 use every 3rd day TRANSDERM-SCOP 1.5 MG PT72 SCOPOLAMINE BASE Inactive FLUTICASONE PROPIONATE 50 MCG/ACT SUSP 1 puff in each nostril daily FLUTICASONE PROPIONATE 50 MCG/ACT SUSP 750526 FLUTICASONE PROPIONATE Inactive OFLOXACIN 0.3 % OPHTH SOLN 4-5 of the eye drops in the ear bid OFLOXACIN 0.3 % OPHTH SOLN 096863 OFLOXACIN Inactive AUGMENTIN 875-125 MG TABS 1 bid AUGMENTIN 875-125 MG TABS 041714 AMOXICILLIN-POT CLAVULANATE Inactive Advance Directives Directive Description Start Date LETTER OF AUTHORITY Immunizations Vaccine Administration Date Value Standard Description Hepatitis A vaccine, ped/adol, 2 dose (Havrix 2 dose ped/adol, Vaqta ped/adol) , #2 Havrix (2 dose - Ped/Adol) [CVX83] hepatitis A vaccine, pediatric/adolescent dosage, 2 dose schedule Adacel (Tetanus, reduced Diphtheria, and acellular Pertussis Immunization) Adacel [[id number]] tetanus toxoid, reduced diphtheria toxoid, and acellular [...] 0.93 ng/dL 0.76-1.46 sodium, serum 141 mmol/L 398-042 8592/02/13 potassium, serum 4.5 mmol/L 3.5-5.2 chloride, serum [...] 142-424 Encounters Code Encounter Date Provider Facility CPT-31863 Level 3 Est. 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 Patient 10:50:17 CHILDCARE ATTENDANT Iesha Cardoza MD [facility] CPT-25671 Level 3 Est. Patient 15:46:29 CHILDCARE ATTENDANT Iesha Cardoza MD [facility] CPT-71636 Level 3 Est. Patient 16:05:57 CDT Iesha Cardoza MD [facility] Procedures Code Procedure Name Date Entry Date Standard Description CPT-000 Give Immunizations Due 15:58:05 CDT CPT-94122 Administration 2+ single or combination vaccines inc oral 16:09:35 CDT CPT-08383 Administration single or combination vaccine inc oral 16 :09:35 CDT CPT-74830 Hepatitis A ped/adol 2 dose schedule 16:09:35 CDT 09/04 CPT-35506 Meningococcal Conjugate Vacine (Menactra) 16:09:35 CDT CPT-PV Prev. Care Visit 15:58:05 CDT CPT-17643 Venipuncture Draw Fee 12:00:59 CDT CPT-PV Prev. Care Visit 12:00:08 CDT
--- OUTSIDE RECORDS SUMMARY | 2017-12-11 10:33 | XMS REPORT | Clinical Summary ---
Author Author Admin, EDDIE Organization [facility] Address Unknown Phone Unavailable Allergies, Adverse Reactions, [...] puff in each nostril daily FLUTICASONE PROPIONATE [id number] No Longer Active Hannah Bowman MD PhD Active TRANSDERM-SCOP 1.5 MG PT72 use every 3rd day SCOPOLAMINE BASE 59828385895 No Longer Active Hannah Bowman MD PhD Active AUGMENTIN 875-125 MG TABS 1 bid AMOXICILLIN-POT CLAVULANATE 49441485789 No Longer Active Iesha Cardoza MD Active AMOXICILLIN 875 MG TABS 1 bid AMOXICILLIN 78179324526 No Longer Active Iesha Cardoza MD Active OFLOXACIN 0.3 % OPHTH SOLN 4-5 of the eye drops in the ear bid OFLOXACIN 12563160892 No Longer Active Iesha Cardoza MD Active AMOXICILLIN 875 MG TABS 1 bid AMOXICILLIN 875 MG TABS 211101 AMOXICILLIN Inactive TRANSDERM-SCOP 1.5 MG PT72 use every 3rd day TRANSDERM-SCOP 1.5 MG PT72 SCOPOLAMINE BASE Inactive FLUTICASONE PROPIONATE 50 MCG/ACT SUSP 1 puff in each nostril daily FLUTICASONE PROPIONATE 50 MCG/ACT SUSP 677263 FLUTICASONE PROPIONATE Inactive OFLOXACIN 0.3 % OPHTH SOLN 4-5 of the eye drops in the ear bid OFLOXACIN 0.3 % OPHTH SOLN 154765 OFLOXACIN Inactive AUGMENTIN 875-125 MG TABS 1 bid AUGMENTIN 875-125 MG TABS 229652 AMOXICILLIN-POT CLAVULANATE Inactive Advance Directives Directive Description Start Date LETTER OF AUTHORITY Immunizations Vaccine Administration Date Value Standard Description Hepatitis A vaccine, ped/adol, 2 dose (Havrix 2 dose ped/adol, Vaqta ped/adol) , #2 Havrix (2 dose - Ped/Adol) [CVX83] hepatitis A vaccine, pediatric/adolescent dosage, 2 dose schedule Adacel (Tetanus, reduced Diphtheria, and acellular Pertussis Immunization) Adacel [[id number]] tetanus toxoid, reduced diphtheria toxoid, and acellular [...] 0.93 ng/dL 0.76-1.46 sodium, serum 141 mmol/L 774-147 6268/02/13 potassium, serum 4.5 mmol/L 3.5-5.2 chloride, serum [...] 142-424 Encounters Code Encounter Date Provider Facility CPT-62585 Level 3 Est. 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 Patient 10:50:17 WAREHOUSE HELPER Iesha Cardoza MD [facility] CPT-26518 Level 3 Est. Patient 15:46:29 WAREHOUSE HELPER Iesha Cardoza MD [facility] CPT-45412 Level 3 Est. Patient 16:05:57 CDT Iesha Cardoza MD [facility] Procedures Code Procedure Name Date Entry Date Standard Description CPT-000 Give Immunizations Due 15:58:05 CDT CPT-68741 Administration 2+ single or combination vaccines inc oral 16:09:35 CDT CPT-89230 Administration single or combination vaccine inc oral 16 :09:35 CDT CPT-28491 Hepatitis A ped/adol 2 dose schedule 16:09:35 CDT 09/04 CPT-74609 Meningococcal Conjugate Vacine (Menactra) 16:09:35 CDT CPT-PV Prev. Care Visit 15:58:05 CDT CPT-69611 Venipuncture Draw Fee 12:00:59 CDT CPT-PV Prev. Care Visit 12:00:08 CDT
--- OUTSIDE RECORDS SUMMARY | 2017-12-11 10:33 | XMS REPORT | Clinical Summary ---
Author Author Admin, EDDIE Organization [facility] Address Unknown Phone Unavailable Allergies, Adverse Reactions, [...] puff in each nostril daily FLUTICASONE PROPIONATE 61577083403 No Longer Active Hannah Bowman MD PhD Active TRANSDERM-SCOP 1.5 MG PT72 use every 3rd day SCOPOLAMINE BASE 56465900420 No Longer Active Hannah Bowman MD PhD Active AUGMENTIN 875-125 MG TABS 1 bid AMOXICILLIN-POT CLAVULANATE 86733905912 No Longer Active Iesha Cardoza MD Active AMOXICILLIN 875 MG TABS 1 bid AMOXICILLIN 53918730694 No Longer Active Iesha Cardoza MD Active OFLOXACIN 0.3 % OPHTH SOLN 4-5 of the eye drops in the ear bid OFLOXACIN 84589555416 No Longer Active Iesha Cardoza MD Active AMOXICILLIN 875 MG TABS 1 bid AMOXICILLIN 875 MG TABS 666891 AMOXICILLIN Inactive TRANSDERM-SCOP 1.5 MG PT72 use every 3rd day TRANSDERM-SCOP 1.5 MG PT72 SCOPOLAMINE BASE Inactive FLUTICASONE PROPIONATE 50 MCG/ACT SUSP 1 puff in each nostril daily FLUTICASONE PROPIONATE 50 MCG/ACT SUSP 435780 FLUTICASONE PROPIONATE Inactive OFLOXACIN 0.3 % OPHTH SOLN 4-5 of the eye drops in the ear bid OFLOXACIN 0.3 % OPHTH SOLN 313189 OFLOXACIN Inactive AUGMENTIN 875-125 MG TABS 1 bid AUGMENTIN 875-125 MG TABS 135286 AMOXICILLIN-POT CLAVULANATE Inactive Advance Directives Directive Description Start Date LETTER OF AUTHORITY Immunizations Vaccine Administration Date Value Standard Description Hepatitis A vaccine, ped/adol, 2 dose (Havrix 2 dose ped/adol, Vaqta ped/adol) , #2 Havrix (2 dose - Ped/Adol) [CVX83] hepatitis A vaccine, pediatric/adolescent dosage, 2 dose schedule Adacel (Tetanus, reduced Diphtheria, and acellular Pertussis Immunization) Adacel [[id number]] tetanus toxoid, reduced diphtheria toxoid, and acellular [...] ... - Chemistry sodium, serum 141 mmol/L 505-714 0520/02/13 potassium, serum 4.5 mmol/L 3.5-5.2 chloride, serum [...] 142-424 Encounters Code Encounter Date Provider Facility CPT-93081 Level 3 Est. 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 Patient 10:50:17 DELIVERY CREW WORKER Iesha Cardoza MD [facility] CPT-77675 Level 3 Est. Patient 15:46:29 DELIVERY CREW WORKER Iesha Cardoza MD [facility] CPT-81781 Level 3 Est. Patient 16:05:57 CDT Iesha Cardoza MD [facility] Procedures Code Procedure Name Date Entry Date Standard Description CPT-000 Give Immunizations Due 15:58:05 CDT CPT-65779 Administration 2+ single or combination vaccines inc oral 16:09:35 CDT CPT-54927 Administration single or combination vaccine inc oral 16 :09:35 CDT CPT-45275 Hepatitis A ped/adol 2 dose schedule 16:09:35 CDT 09/04 CPT-83439 Meningococcal Conjugate Vacine (Menactra) 16:09:35 CDT CPT-PV Prev. Care Visit 15:58:05 CDT CPT-89840 Venipuncture Draw Fee 12:00:59 CDT CPT-PV Prev. Care Visit 12:00:08 CDT
--- OUTSIDE RECORDS SUMMARY | 2017-12-11 10:34 | XMS REPORT | Continuity of Care Document ---
Author Author [facility] Organization [facility] Address Unknown Phone Unavailable Allergies Active Description Code Type Severity Reaction Onset Reported/Identified Relationship to Patient Clinical Status Yes No known allergies Drug N/A N/A Medications There is no data. Problems There is no data. Procedures There is no data. Results There is no data. Encounters ACCT No. Visit Date/Time Discharge Status Pt. Type Provider Facility Loc./Unit Complaint [id number] 03/05/2017 22:03:00 03/05/2017 23:26:00 DIS Emergency LUCIANO ARCHIBALD [facility] ED ED visit [id number] 01/22/2017 04:02:16 01/23/2017 02:35:00 DIS Inpatient TRENTON JIMENEZ [facility] JOSE ICU Community Aquired PN Sepsis resp distress [id number] 01/22/2017 00:57:00 01/22/2017 03:59:00 DIS Emergency PRIYA OLEA [facility] ED Fever [id number] 02/01/2017 14:20:01 ACT Unknown [id number] 12/11/2017 09:35:00 Document Registration [id number] 08/20/2016 16:08:23 ACT Document Registration
--- OUTSIDE RECORDS SUMMARY | 2017-12-11 10:34 | XMS REPORT | Clinical Summary ---
Author Author Admin, EDDIE Organization [facility] Address Unknown Phone Allergies, Adverse Reactions, Alerts Allergy Name Reaction Description Start Date Severity Status Provider No Known Allergies Cheryle Morris LPN Conditions or Problems Problem Name Problem Code [...] Iesha Cardoza MD Other malaise and fatigue OTITIS MEDIA-ACUTE ICD-382.9 Inactive Iesha Cardoza MD Sinusitis-Acute ICD-461.9 Inactive Iesha Cardoza MD Sinusitis-Acute ICD-461.9 Inactive Iesha Cardoza MD Medication List Medication Instructions Start Date Stop Date Generic Name NDC Status Provider Patient Instruction TRANSDERM-SCOP 1.5 MG PT72 use every 3rd day SCOPOLAMINE BASE 24685921424 Active Iesha Cardoza MD Active FLUTICASONE PROPIONATE 50 MCG/ACT SUSP 1 puff in each nostril daily FLUTICASONE PROPIONATE 47559479556 Active Iesha Cardoza MD Active AUGMENTIN 875-125 MG TABS 1 bid AMOXICILLIN-POT CLAVULANATE [id number] No Longer Active Iesha Cardoza MD Active AMOXICILLIN 875 MG TABS 1 bid AMOXICILLIN 88119104464 No Longer Active Iesha Cardoza MD Active OFLOXACIN 0.3 % OPHTH SOLN 4-5 of the eye drops in the ear bid OFLOXACIN 13114024570 No Longer Active Iseha Cardoza MD Active AUGMENTIN 875-125 MG TABS 1 bid AUGMENTIN 875-125 MG TABS 670558 AMOXICILLIN-POT CLAVULANATE Inactive OFLOXACIN 0.3 % OPHTH SOLN 4-5 of the eye drops in the ear bid OFLOXACIN 0.3 % OPHTH SOLN 022578 OFLOXACIN Inactive AMOXICILLIN 875 MG TABS 1 bid AMOXICILLIN 875 MG TABS 844612 AMOXICILLIN Inactive Advance Directives Directive Description Start Date LETTER OF AUTHORITY Immunizations Vaccine Administration Date Value Standard Description Hepatitis A vaccine, ped/adol, 2 dose (Havrix 2 dose ped/adol, Vaqta ped/adol) , #2 Havrix (2 dose - Ped/Adol) [CVX83] hepatitis A vaccine, pediatric/adolescent dosage, 2 dose schedule Adacel immunization Adacel [VHE177] tetanus toxoid, reduced diphtheria toxoid, and acellular [...] unspecified formulation DPT immunization #4 Historical MMR virus immunization #1 Historical hepatitis B vaccine [...] vaccine, unspecified formulation hepatitis B vaccine #2 Historical hepatitis B vaccine, unspecified formulation DPT immunization #1 Historical Hemophilus influenza B immunization #1 Historical Haemophilus influenzae type b vaccine, conjugate unspecified formulation oral polio vaccine (OPV) #1 Historical poliovirus vaccine, unspecified formulation hepatitis B vaccine #1 Historical hepatitis B vaccine, unspecified formulation Vital Signs Date Name Value Unit Range Description blood pressure, diastolic 68 mm[Hg] BP nation blood pressure, systolic 120 mm[Hg] BP sys height E&M 64.75 [in_us] Bdy height temperature E&M 96.3 [degF] Body temperature weight E&M 145 [lb_av] Weight Measured blood pressure, diastolic 66 mm[Hg] BP nation blood pressure, systolic 118 mm[Hg] BP sys height E&M 64.5 [in_us] Bdy height temperature E&M 98.3 [degF] Body temperature weight E&M 146 [lb_av] Weight Measured blood pressure, diastolic 70 mm[Hg] BP nation blood pressure, systolic 118 mm[Hg] BP sys height E&M 64.5 [in_us] Bdy height pulse rate E&M 72 /min Heart rate respiratory rate E&M 16 /min Resp rate temperature E&M 97 [degF] Body temperature weight E&M 149 [lb_av] Weight Measured Diagnostic Results Date Name Value Unit Range Description Lab Report: CBC W/ DIFF, CMP, UA, TSH - Chemistry thyroid stimulating hormone, serum 1.41 u[iU]/mL sodium, serum 144 mmol/L potassium, serum 3.9 mmol/L chloride, serum 103 mmol/L carbon dioxide, venous blood 29.1 mmol/L urea nitrogen, blood 17 mg/dL blood glucose 94 mg/dL creatinine, serum 1.16 mg/dL aspartate aminotransferase (SGOT), serum 21 U/L alanine aminotransferase (SGPT), serum 35 U/L bilirubin, serum, total 1.1 mg/dL alkaline phosphatase, serum 112 U/L calcium, serum 9.1 mg/dL protein, total urine random NEGATIVE mg/dL Lab Report: CBC W/ DIFF, CMP, UA, TSH - Hematology leukocyte count, blood 6.7 10*3/mm3 erythrocyte (RBC) count 4.3 10*6/mm3 hemoglobin, blood 14.7 g/dL hematocrit, blood 42.6 % mean corpuscular volume, RBC 100.2 fL mean corpuscular hemoglobin, RBC 34.6 pg red blood cell distribution width 13.0 % platelet count 310 10*3/mm3 Lab Report: Free Thyroxine (L), Thyroid Stimulating Hormone (L), MONO w/ ... - Chemistry thyroxine, serum, free 1.10 ng/dL 0.76-1.46 TSH 1.96 m[iU]/mL 0.36-3.74 sodium, serum 143 mmol/L 807-040 4380/12/31 potassium, serum 4.0 mmol/L 3.5-5.2 chloride, serum 102 mmol/L 98-107 carbon dioxide, venous blood 34.2 mmol/L 21.0-32.0 blood glucose 59 mg/dL 65-110 urea nitrogen, blood 11 mg/dL 7-18 creatinine, serum 1.10 mg/dL 0.60-1.30 alanine aminotransferase (SGPT), serum 33 U/L 12-78 aspartate aminotransferase (SGOT), serum 18 U/L 15-37 alkaline phosphatase, serum 113 U/L 50-136 calcium, serum 9.1 mg/dL 8.5-10.1 bilirubin, serum, total 0.80 mg/dL 0.00-1.00 Lab Report: Free Thyroxine (L), Thyroid Stimulating Hormone (L), MONO w/ ... - Hematology leukocyte count, blood 4.9 10^3/MM^3 10*3/mm3 4.6-10.2 neutrophils as percent of blood leukocytes 48.2 % 42.2-75.2 monocytes as percent of blood leukocytes 8.4 % 1.7-9.3 lymphocytes as percent of blood leukocytes 40.6 % 20.5-51.1 erythrocyte (RBC) count 4.48 10^6/MM^3 10*6/mm3 4.69-6.13 hemoglobin, blood 16.0 g/dL 13.5-17.5 hematocrit, blood 46.7 % 41.0-53.0 mean corpuscular volume, RBC 104 fL 80-97 mean corpuscular hemoglobin, RBC 35.7 pg 27.0-31.2 mean corpuscular hemoglobin concentration, RBC 34.2 G/DL % 31.8- 35.4 red blood cell distribution width 13.2 % 11.6-14.8 platelet count 298 10^3/MM^3 10*3/mm3 142-424 Encounters Code Encounter Date Provider Facility CPT-21050 Level 3 Est. Patient 10:50:17 DIRECTOR MERIT SYSTEM Iesha Cardoza MD [facility] CPT-15070 Level 3 Est. Patient 15:46:29 DIRECTOR [employer]IT SYSTEM Iesha Cardoza MD [facility] CPT-20070 Level 3 Est. Patient 16:05:57 CDT Iesha Cardoza MD [facility] Procedures Code Procedure Name Date Entry Date Standard Description CPT-000 Give Immunizations Due 15:58:05 CDT CPT-21566 Administration 2+ single or combination vaccines inc oral 16:09:35 CDT CPT-79852 Administration single or combination vaccine inc oral 16 :09:35 CDT CPT-28131 Hepatitis A ped/adol 2 dose schedule 16:09:35 CDT 09/04 CPT-03738 Meningococcal Conjugate Vacine (Menactra) 16:09:35 CDT CPT-PV Prev. Care Visit 15:58:05 CDT CPT-52478 Venipuncture Draw Fee 12:00:59 CDT CPT-PV Prev. Care Visit 12:00:08 CDT
--- NOTE | 2017-12-11 10:35 | Progress Note-Post Operative ---
Post-Operative Progess Note Surgeon (s)/Oil Tank Car Cleaner (s) Surgeon SHELBY DUNCAN DDS Oil Tank Car Cleaner: joshua moses Pre-Operative Diagnosis downs syndrome, nonfuntionaland, carious wisdom teeth. Post-Operative Diagnosis same Procedure & Operative Findings Date of Procedure 12/11/17 Procedure Performed/Findings extraction of 1,16,17,32 Anesthesia Type geta Estimated Blood Loss Estimated blood loss (mL): minimal Specimens/Packing Specimens Removed none Packing: none. SHELBY DUNCAN DDS Dec 11, 2017 10:35 am
[2017-12-11] MEDS ORDERED: HYDROcodone/APAP 7.5MG-325 MG/15 ML (LORTAB) UDC PO PRN (10:45)
[2017-12-11] MEDS ORDERED: HYDROmorphone 2 MG/ML VIAL (DILAUDID) IV PRN (10:45)
[2017-12-11] MEDS ORDERED: fentaNYL INJECTION 100 MCG/2 ML AMP IVP ONE (11:00)
[2017-12-11] MEDS ORDERED: ONDANSETRON 4 MG/2 ML (SDV) Z0FRAN IVP PRN (11:00)
[2017-12-11 11:35] VITALS: BP 98/54
[2017-12-11 11:40] VITALS: BP 98/54
[2017-12-11] MEDS ORDERED: HYDR-4226 PO (11:57)
[2017-12-11] MEDS ORDERED: DEXAMETHASONE 4 MG/ML SDV (DECADRON) IV SCH (12:00)
[2017-12-11 12:05] VITALS: BP 102/59
[2017-12-11 12:35] VITALS: BP 100/65
[2017-12-11] MEDS ORDERED: ceFAZolin INJECTION 1,000 MG in NS (IVPB) 50 ML IV SCH (14:00)
--- NOTE | 2017-12-11 14:32 | Anesthesia-General Post-Op ---
General Patient Condition Mental Status/LOC: Same as Preop Cardiovascular: Satisfactory Nausea/Vomiting: Absent Respiratory: Satisfactory Pain: Controlled Complications: Absent Post Op Complications Complications None Follow Up Care/Instructions Patient Instructions None needed. Anesthesia/Patient Condition Patient Condition Patient was seen after the surgery and he was doing well, no complaints, stable vital signs, no apparent adverse anesthesia problems. VON MESSER DO Dec 11, 2017 14:32
== END 2017-12-11 13:00 | disposition home or self-care (01) ==
LOC: SDC 08:28
PROVIDERS: ATTEND Specialist
DX: K01.1 Impacted teeth (principal); K02.9 Dental caries, unspecified; Q90.9 Down syndrome, unspecified; Z11.2 Encounter for screening for other bacterial diseases; F41.9 Anxiety disorder, unspecified; F32.9 Major depressive disorder, single episode, unspecified; L40.9 Psoriasis, unspecified; K21.9 Gastro-esophageal reflux disease without esophagitis; K52.9 Noninfective gastroenteritis and colitis, unspecified
CPT/HCPCS: 87081